=== PATIENT | female | born 1935 | race Two or more races ===

== ENCOUNTER 2017-10-27 19:34 | Inpatient (IN) | payer MEDICARE, OTHER ==
[~2017-10-27] VITALS: Ht 157.5 cm; Wt 68.0 kg
[~2017-10-27 19:34] MED LIST: AMAN100C16 PO; AMLO5TAB4 PO; ASPI81TA31 PO; CALC-555 PO; CHOL200026 PO; ERYTHROMYCIN RIGHTEYE; KETO45GE2; LEVO25TA9 PO; LOSA100T3 PO; MENT3.5O TP; METF500T4 PO; MULT-1045 PO; NORT25CA PO; OMEG-49 PO; POTA8TAB3 PO; QUET25TA PO; RIVA3CAP3 PO; SIMV20TA6 PO; VITAMIN B 12; WARF4TAB41 PO; WARF5TAB77 PO; [UNRECOGNIZED DRUG - OTHER] TOP
[2017-10-27] MEDS ORDERED: IV NORMAL SALINE 1000 ML BAG IV ONE (21:15)
--- NOTE | 2017-10-27 21:24 | NUR ---
AT PT BEDSIDE FOR MSE
--- NOTE | 2017-10-27 21:32 | NUR ---
LAB AT PT BEDSIDE
[2017-10-27 21:54] LABS: BASOPHILS # (AUTO) 0.1 K/uL (0.0-8.0); BASOPHILS % (AUTO) 0.6 % (0.0-2.0); EOSINOPHILS # (AUTO) 1.2 K/uL (0.0-0.7); EOSINOPHILS % (AUTO) 10.9 % (0.0-7.0); HEMATOCRIT 25.1 % (31.2-41.9); HEMOGLOBIN 7.8 g/dL (10.9-14.3); LYMPHOCYTES # (AUTO) 2.2 K/uL (20.0-40.0); LYMPHOCYTES % (AUTO) 19.2 % (20.5-51.5); MEAN CORPUSCULAR HEMOGLOBIN 23.5 uug (24.7-32.8); MEAN CORPUSCULAR HGB CONC 31 g/dL (32.3-35.6); MEAN CORPUSCULAR VOLUME 75.4 fL (75.5-95.3); MONOCYTES % (AUTO) 8.4 % (0.0-11.0); NEUTROPHILS % (AUTO) 60.9 % (38.5-71.5); PLATELET COUNT (AUTO) 589 K/uL (179-408); RED BLOOD CELL COUNT(AUTO) 3.33 MIL/uL (3.63-4.92); WHITE BLOOD COUNT (AUTO) 11.5 K/uL (3.8-11.8)
--- NOTE | 2017-10-27 22:00 | NUR ---
DAUGHTER AT PT BEDSIDE. EXPRESSES SHE TOOK PT TO PCP TODAY, AND HEMOGLOBIN WAS LOW. WAS TOLD TO COME TO ED.
[2017-10-27 22:02] LABS: ALANINE AMINOTRANSFERASE 24 U/L (14-59); ALKALINE PHOSPHATASE 157 U/L (50-136); ASPARTATE AMINOTRANSFERASE 19 U/L (15-37); BILIRUBIN,DIRECT 0.1 mg/dL (0.0-0.2); BILIRUBIN,TOTAL 0.4 mg/dL (0.2-1.0); CARBON DIOXIDE 28 mmol/L (21-32); CHLORIDE 104 mmol/L (98-107); CREATININE 0.6 mg/dL (0.6-1.3); GLUCOSE 125 mg/dL (74-106); LIPASE 122 U/L (73-393); POTASSIUM 3.8 mmol/L (3.5-5.1); TOTAL PROTEIN, SERUM 7.2 g/dL (6.4-8.2); UREA NITROGEN, BLOOD 24 mg/dL (7-18)
[2017-10-27] MEDS ORDERED: LABETALOL HCL 100 MG/20 ML VIAL IV ONE (22:45)
[2017-10-27] MEDS ORDERED: LABETALOL HCL 100 MG/20 ML VIAL ONE (23:00)
--- NOTE | 2017-10-27 23:05 | NUR ---
Pt to CT via [place]
[2017-10-27] MEDS ORDERED: QUETIAPINE FUMARATE 25 MG TABLET PO SCH (23:15)
[2017-10-27] MEDS ORDERED: ONDANSETRON 4 MG/2 ML VIAL IV PRN (23:15)
[2017-10-27] MEDS ORDERED: DEXTROSE 50% 50 ML DISP.SYRIN IV PRN (23:15)
[2017-10-27 23:19] LABS: *BILIRUBIN,URIN NEGATIVE (NEGATIVE); *BLOOD, URINE Trace-lysed (NEGATIVE); *CLARITY,URINE HAZY (CLEAR); *COLOR,URINE YELLOW (YELLOW); *KETONES,URINE NEGATIVE (NEGATIVE); *PROTEIN,URINE 1+ (NEGATIVE); *UROBILINOGEN,URINE 0.2 E.U./dl (NORMAL); LEUKOCYTE ESTERASE ,URINE 2+ (NEGATIVE); NITRITE, URINE POSITIVE (NEGATIVE); UGLUCOSE NEGATIVE (NEGATIVE)
[2017-10-27 23:23] LABS: BACTERIA,URINE MODERATE /HPF (NONE SEEN); RBC,URINE 0-3 /HPF (0-3); SQUAMOUS EPITHELIAL CELL,UR FEW /HPF (NONE SEEN)
[2017-10-28] VITALS (9 sets, daily range): BP systolic 116–161; BP diastolic 41–71
--- NOTE | 2017-10-28 00:23 | NUR ---
Pt's O2 sat decreased to 88 -89 % on RA. No improvement with repositioning and replacing saturation monitor. Pt placed on 2 L NC to maintain O2 stats > 95%
--- NOTE | 2017-10-28 01:02 | NUR ---
LAB AT PT BEDSIDE
[2017-10-28] MEDS: IV NS 1000 ML 1,000 ML IV PRN ×2 (02:32→09:41)
--- NOTE | 2017-10-28 02:50 | NUR ---
PT RESTING IN A POSITION OF COMFORT. NO ACUTE DISTRESS NOTED AT THIS TIME.
[2017-10-28 02:52] LABS: IRON, SERUM 11 ug/dL (50-175)
--- NOTE | 2017-10-28 03:52 | NUR ---
PT RESTING IN A POSITION OF COMFORT. NO ACUTE DISTRESS NOTED AT THIS TIME.
--- NOTE | 2017-10-28 05:00 | NUR ---
Pt resting in position of comfort for self, no obvious signs of distress at this time. Admission pending.
[2017-10-28] MEDS ORDERED: CEFEPIME HCL 2 G in IV DEXTROSE 5% 100 ML IV ONE (06:00)
--- NOTE | 2017-10-28 07:00 | NUR ---
recieved pt at bed, resting, no sign of distress. daughter at bedside, daughter very involved in care.pt daughter said that the pt has heel wounds that is under care of a surgeon. pt daughter has all the meds and supplies to change the wound and requesting that only her changes the wound dressing. floor rn notified.
[2017-10-28] MEDS ORDERED: CEFEPIME HCL 1 G VIAL ONE (07:14)
--- NOTE | 2017-10-28 07:14 | NUR ---
Report given to JANEL Lester. I relinquish care of pt at this time.
[2017-10-28] MEDS: BLOOD SUGAR DIAGNOSTIC 1 EACH STRIP VI SCH ×4 (07:50→21:00)
[2017-10-28 08:02] LABS: BASOPHILS # (AUTO) 0.1 K/uL (0.0-8.0); EOSINOPHILS # (AUTO) 0.6 K/uL (0.0-0.7); LYMPHOCYTES # (AUTO) 1.8 K/uL (20.0-40.0); MONOCYTES # (AUTO) 0.9 K/uL (2.0-10.0)
[2017-10-28] MEDS ORDERED: INSULIN REGULAR, HUMAN 300 UNIT/3 ML VIAL ONE (08:02)
[2017-10-28 08:07] LABS: BASOPHILS % (AUTO) 0.5 % (0.0-2.0); HEMATOCRIT 22.4 % (31.2-41.9); MEAN CORPUSCULAR HEMOGLOBIN 23.3 uug (24.7-32.8); MEAN CORPUSCULAR HGB CONC 31 g/dL (32.3-35.6); MEAN CORPUSCULAR VOLUME 75.2 fL (75.5-95.3); MONOCYTES % (AUTO) 8.7 % (0.0-11.0); NEUTROPHILS # (AUTO) 6.6 K/uL (1.8-8.9); NEUTROPHILS % (AUTO) 66.8 % (38.5-71.5); PLATELET COUNT (AUTO) 520 K/uL (179-408); RED BLOOD CELL COUNT(AUTO) 2.97 MIL/uL (3.63-4.92); WHITE BLOOD COUNT (AUTO) 9.8 K/uL (3.8-11.8)
[2017-10-28 08:15] LABS: CARBON DIOXIDE 25 mmol/L (21-32); CHLORIDE 107 mmol/L (98-107); CHOLESTEROL 93 mg/dL (<200); CREATININE 0.5 mg/dL (0.6-1.3); GLUCOSE 153 mg/dL (74-106); HDL CHOLESTEROL 40 mg/dL (40-60); MAGNESIUM 1.9 mg/dL (1.8-2.4); PHOSPHOROUS 2.5 mg/dL (2.5-4.9); POTASSIUM 3.4 mmol/L (3.5-5.1); TRIGLYCERIDES 100 MG/DL (30-150); UREA NITROGEN, BLOOD 14 mg/dL (7-18)
--- NOTE | 2017-10-28 08:29 | NUR ---
pt transfered to floor in stable condition
[2017-10-28 08:46] LABS: BASOPHILS % (MANUAL) 1 % (0-2); EOSINOPHILS % (MANUAL) 7 % (0-8); LYMPHOCYTES % (MANUAL) 18 % (20-40); MONOCYTES % (MANUAL) 9 % (2-10); NEUTROPHILS % (MANUAL) 65 % (42-75)
[2017-10-28] MEDS ORDERED: METFORMIN HCL 500 MG TABLET PO SCH (09:00)
[2017-10-28] MEDS: PANTOPRAZOLE SODIUM 40 MG VIAL IV SCH ×2 (09:00→14:00)
[2017-10-28] MEDS ORDERED: RIVASTIGMINE TARTRATE 3 MG CAPSULE PO SCH (09:00)
--- NOTE | 2017-10-28 09:00 | NUR ---
NEW PATIENT FROM ER TO ROOM 229B AWAKE CONFUSED FORGETFUL VS TAKEN STABLE ON ASPIRATION AND FALL PRECAUTION BED ALARM ON AND CALL LIGHT IN REACH FAMILY DAUGHTER AT BEDSIDE
--- NOTE | 2017-10-28 09:30 | NUR ---
PATIENT HAVING LOW SAT O2 WAS 81 WHEN SHE WAS HERE SUCTION MOUTH PRN MOD AMT THICK WHITE SPUTUM OUT AND CHANGE O2 TO MASK AT 5L /MIN O2 SAT WAS 95% AND RT WAS INFORM OF SITUATION TO DO TREATMENT PRN IF NEED
[2017-10-28] MEDS: CALCIUM CARB/VITAMIN D 500MG-200UNITS TABLET PO SCH (09:41)
[2017-10-28] MEDS: ACETAMINOPHEN 650 MG SUPP.RECT RC PRN ×3 (09:41→21:17)
[2017-10-28] MEDS: SIMVASTATIN 20 MG TABLET PO SCH (09:41)
[2017-10-28] MEDS: RIVASTIGMINE TARTRATE 3 MG CAPSULE PO SCH ×2 (09:41→17:08)
[2017-10-28] MEDS: LEVOTHYROXINE SODIUM 25 MCG TABLET PO SCH (09:42)
--- NOTE | 2017-10-28 10:00 | NUR ---
HAVING LOOSE BM X1 STOOL OB SENT TO LAB AND REPOSITION DR GUTIÉRREZ HERE SEE PATIENT AND PT CONDITION INFORM NEW ORDER IN CHART
[2017-10-28] MEDS ORDERED: VANCOMYCIN IV 1 G in PREMIXED 0 EACH IV ONE (11:00)
[2017-10-28] MEDS ORDERED: QUETIAPINE FUMARATE 25 MG TABLET PO PRN (11:15)
[2017-10-28] MEDS: PIPERACILLIN SODIUM/TAZOBACTAM 4.5 G in IV DEXTROSE 5% 50 ML IV SCH ×3 (11:20→22:56)
--- NOTE | 2017-10-28 13:00 | NUR ---
START GT FEEDING WITH DM RESOURCE AT 30ML /HR WILL INCREASE WHEN TAKING WELL
[2017-10-28] MEDS ORDERED: POTASSIUM CHLORIDE 20 MEQ TAB.PRT.SR PO ONE (14:30)
--- NOTE | 2017-10-28 15:05 | NUR ---
CLINICAL PHARMACY NOTE: VANCOMYCIN PHARMACY TO DOSE Subjective: T ostart vanco in this 82 y/o female for indication of "suspected infection" Objective: weight 68 kg height 149 cm bun 14 Scr 0.5 wbc 9.8 temp 98.6 Assessment/Plan Will start vanco 1gm q17hr for estimated trough of 14.78, first dose today at 1100. Will order trough before 4th dose (not ordered yet). Will dose per level if scr were to appear unstable. Will continue
--- NOTE | 2017-10-28 15:30 | NUR ---
START BLOOD TRANSFUSION HORTENCIA PROCEDURE WELL VS STABLE RESTING CLOSED OBSERVATION
[2017-10-28] MEDS ORDERED: POTASSIUM CHLORIDE 20 MEQ POWDER PACKET PO ONE (15:45)
[2017-10-28] MEDS ORDERED: NOVASOURCE RENAL 1000 ML LIQUID GT SCH (16:15)
[2017-10-28] MEDS: METFORMIN HCL 500 MG TABLET PO SCH (17:08)
[2017-10-28] MEDS: INSULIN REGULAR, HUMAN 300 UNIT/3 ML VIAL SQ PRN (17:10)
--- NOTE | 2017-10-28 18:00 | NUR ---
BLOOD TRANSFUSION COMPLETE NO REACTION VS TAKEN STABLE RESTING WELL HORTENCIA GT FEEDING WELL NO N/V REPOSITION Q2 HR AND MOUTH CARE GIVEN
--- NOTE | 2017-10-28 18:15 | NUR ---
HEMODYNAMIC STATUS STABLE SAFETY MEASURE PROVIDED BED ALARM PIPELINER FINCH IN REACH FAMILY DAUGHTER AT BEDSIDE REFUSED TO CHANGE DSG OR TAKEN PICTURE STATE WILL DO IT HERSELF
--- NOTE | 2017-10-28 20:49 | NUR ---
Report received on pt. Initial assessment completed. Pt is unresponsive to voice, contracted to BUE and BLE, notable course rhonchi to BLL, no cough, face mask in place, HOB up 35 degrees. Tube feeding to g tube infusing at 40 ml/hr, I checked residual = 60ml/hr, returned residual to pt with HOB elevated, flushed tube and held tube feeding at present. Pts' daughter is at bedside insisting on "help with holding her leg while I change dressing, I'm not waiting any longer". Daughter changed dressings to both LE, pt turned to side with HOB elevated. I visualized a 3.5" by approximately 2.5" decubitus on the base of pts right foot, an approximately 3.5 by 3" decubitus on right ankle, large decubitus on top of left foot and on side of left foot. Sites are red, vascular, no necrosis seen at site, feet placed in heel protector boots after dressings changed. Daughter refuses to allow pictures to be taken of decubitus.
[2017-10-28] MEDS: NORTRIPTYLINE HCL 25 MG CAPSULE PO SCH (21:16)
[2017-10-28] MEDS: AMANTADINE HCL 100 MG CAPSULE PO SCH (21:16)
[2017-10-29 00:44] VITALS: BP 101/63
--- NOTE | 2017-10-29 01:39 | NUR ---
Per daughters request (& per bed control/chargemaster analyst) moved pt to private room 227. Tolerated well. No acute changes in ongoing patient assessment.
[2017-10-29 04:00] VITALS: BP 116/61
[2017-10-29] MEDS: VANCOMYCIN IV 1 G in PREMIXED 0 EACH IV SCH ×2 (04:38→22:32)
[2017-10-29] MEDS: PANTOPRAZOLE SODIUM 40 MG VIAL IV SCH (05:34)
[2017-10-29] MEDS: PIPERACILLIN SODIUM/TAZOBACTAM 4.5 G in IV DEXTROSE 5% 50 ML IV SCH ×2 (05:35→14:19)
[2017-10-29] MEDS: LEVOTHYROXINE SODIUM 25 MCG TABLET PO SCH (05:35)
[2017-10-29] MEDS: IV NS 1000 ML 1,000 ML IV PRN ×2 (05:51→22:34)
[2017-10-29] MEDS: BLOOD SUGAR DIAGNOSTIC 1 EACH STRIP VI SCH ×4 (06:10→22:28)
[2017-10-29 06:53] LABS: BASOPHILS # (AUTO) 0.1 K/uL (0.0-8.0); BASOPHILS % (AUTO) 0.9 % (0.0-2.0); EOSINOPHILS # (AUTO) 1.5 K/uL (0.0-0.7); EOSINOPHILS % (AUTO) 14.7 % (0.0-7.0); LYMPHOCYTES # (AUTO) 1.4 K/uL (20.0-40.0); LYMPHOCYTES % (AUTO) 13.3 % (20.5-51.5); MEAN CORPUSCULAR HEMOGLOBIN 24.1 uug (24.7-32.8); MEAN CORPUSCULAR HGB CONC 31 g/dL (32.3-35.6); MONOCYTES # (AUTO) 0.7 K/uL (2.0-10.0); MONOCYTES % (AUTO) 6.9 % (0.0-11.0); NEUTROPHILS # (AUTO) 6.7 K/uL (1.8-8.9); NEUTROPHILS % (AUTO) 64.2 % (38.5-71.5); PLATELET COUNT (AUTO) 476 K/uL (179-408); RED BLOOD CELL COUNT(AUTO) 3.38 MIL/uL (3.63-4.92); WHITE BLOOD COUNT (AUTO) 10.5 K/uL (3.8-11.8)
[2017-10-29 06:58] LABS: HEMOGLOBIN 8.1 g/dL (10.9-14.3)
[2017-10-29 07:05] LABS: CARBON DIOXIDE 25 mmol/L (21-32); CHLORIDE 111 mmol/L (98-107); CREATININE 0.6 mg/dL (0.6-1.3); GLUCOSE 152 mg/dL (74-106); MAGNESIUM 1.9 mg/dL (1.8-2.4); PHOSPHOROUS 2.6 mg/dL (2.5-4.9); POTASSIUM 3.5 mmol/L (3.5-5.1); UREA NITROGEN, BLOOD 12 mg/dL (7-18)
[2017-10-29] MEDS: INSULIN REGULAR, HUMAN 300 UNIT/3 ML VIAL SQ PRN ×2 (07:49→17:02)
--- NOTE | 2017-10-29 08:10 | NUR ---
on bed ,sleeping comfortably. no acute distress noted.
[2017-10-29 09:06] LABS: *OCCULT BLOOD STOOL NEGATIVE (NEGATIVE)
[2017-10-29] MEDS: CALCIUM CARB/VITAMIN D 500MG-200UNITS TABLET PO SCH (09:13)
[2017-10-29] MEDS: RIVASTIGMINE TARTRATE 3 MG CAPSULE PO SCH ×2 (09:13→17:22)
[2017-10-29] MEDS: SIMVASTATIN 20 MG TABLET PO SCH (09:13)
[2017-10-29] MEDS: METFORMIN HCL 500 MG TABLET PO SCH ×2 (09:13→17:22)
[2017-10-29 11:40] VITALS: BP 136/62
--- NOTE | 2017-10-29 12:29 | NUR ---
DAUGHTER CALLED, AWARE OF PATIENT STATUS, APPRECIATIVE OF CARE. WILL VISIT TODAY.
--- NOTE | 2017-10-29 13:34 | NUR ---
CLINICAL PHARMACY NOTE: VANCOMYCIN PHARMACY TO DOSE Subjective: To continue vanco in this 82 y/o female for indication of "suspected infection"- waiting for ID notes Objective: weight 68 kg height 149 cm bun 12 Scr 0.6 wbc 10.5 temp 99.1 Assessment/Plan Will continue same dose of vanco 1gm ivpb q17hr for today. Third dose is due today at 2100. Will order trough before 4th dose (not ordered yet). Will dose per level if scr were to appear unstable. Will continue
[2017-10-29 15:36] VITALS: BP 119/52
--- NOTE | 2017-10-29 16:00 | NUR ---
daughter at bedside, in ,supportive of patient care. supplied provided as requested., will do dressing change tomorrow per patient.
--- NOTE | 2017-10-29 18:30 | NUR ---
resting well, no acute respiratory distress. tolerating tube feeding well
--- NOTE | 2017-10-29 19:30 | NUR ---
Pt sleeping in bed. Daughter at bedside. Pt IV intact and patent. PT daughter said that her mother has her own Wound Care doctor. The daughter will be the one doing the wound care or dressing change for her mother tomorrow. She just want us nurse and loan counselor to just change the diaper and incase the dressing gets soiled just change it and put the Calmoseptine ointment and the absorbent pad. Daughter also wants to remind us that her mother doesn't want to turn off the lights even if she is sleeping and wants music or turn on the television. Vital signs of pt WNL. will continue to monitor. Safety and comfort provided.
[2017-10-29 20:00] VITALS: BP 122/62
[2017-10-29] MEDS: NORTRIPTYLINE HCL 25 MG CAPSULE PO SCH (23:08)
[2017-10-29] MEDS: LACTOBACILLUS RHAMNOSUS GG 1 EACH CAPSULE GT SCH (23:08)
[2017-10-29] MEDS: AMANTADINE HCL 100 MG CAPSULE PO SCH (23:08)
[2017-10-30 00:18] VITALS: BP 140/60
[2017-10-30] MEDS: PIPERACILLIN SODIUM/TAZOBACTAM 4.5 G in IV DEXTROSE 5% 50 ML IV SCH ×4 (00:35→22:10)
[2017-10-30] MEDS: DIABETICSOURCE AC 1000ML LIQUID GT PRN (02:46)
[2017-10-30 04:00] VITALS: BP 154/74
[2017-10-30] MEDS: BLOOD SUGAR DIAGNOSTIC 1 EACH STRIP VI SCH ×4 (06:46→20:28)
[2017-10-30 06:49] LABS: BASOPHILS % (AUTO) 0.4 % (0.0-2.0); EOSINOPHILS # (AUTO) 0.8 K/uL (0.0-0.7); EOSINOPHILS % (AUTO) 7.1 % (0.0-7.0); HEMATOCRIT 25.4 % (31.2-41.9); HEMOGLOBIN 7.9 g/dL (10.9-14.3); LYMPHOCYTES # (AUTO) 1.8 K/uL (20.0-40.0); LYMPHOCYTES % (AUTO) 15.4 % (20.5-51.5); MEAN CORPUSCULAR HGB CONC 31 g/dL (32.3-35.6); MEAN CORPUSCULAR VOLUME 77.1 fL (75.5-95.3); MONOCYTES % (AUTO) 8.7 % (0.0-11.0); NEUTROPHILS # (AUTO) 7.9 K/uL (1.8-8.9); NEUTROPHILS % (AUTO) 68.4 % (38.5-71.5); PLATELET COUNT (AUTO) 486 K/uL (179-408); WHITE BLOOD COUNT (AUTO) 11.6 K/uL (3.8-11.8)
[2017-10-30] MEDS: PANTOPRAZOLE SODIUM 40 MG VIAL IV SCH (06:50)
[2017-10-30] MEDS: LEVOTHYROXINE SODIUM 25 MCG TABLET PO SCH (06:50)
[2017-10-30 06:57] LABS: CARBON DIOXIDE 27 mmol/L (21-32); CHLORIDE 112 mmol/L (98-107); CREATININE 0.6 mg/dL (0.6-1.3); GLUCOSE 151 mg/dL (74-106); POTASSIUM 3.3 mmol/L (3.5-5.1); UREA NITROGEN, BLOOD 12 mg/dL (7-18)
--- NOTE | 2017-10-30 07:00 | NUR ---
PT VITAL SIGNS WNL. PT SHOWS NO SIGNS OF DISTRESS. IV SITE INTACT AND PATENT. DAUGHTER CALLED LAST NIGHT AND AT [place] TO ASK THE CONDITION OF HER MOTHER. DAUGHTER SAID SHE WILL BE THE ONE WHO WILL DO THE DRESSING CHANGE LATER. BLOOD SUGAR 153. SAFETY AND COMFORT PROVIDED.
--- NOTE | 2017-10-30 07:30 | NUR ---
Awake, confused. on moderate high back rest. O2 per mask at 5L. IVF infusing. Diabetasource per GTube
[2017-10-30] MEDS ORDERED: POTASSIUM CHLORIDE 20 MEQ TAB.PRT.SR PO ONE (09:45)
[2017-10-30] MEDS: METFORMIN HCL 500 MG TABLET PO SCH ×2 (10:18→17:01)
[2017-10-30] MEDS: CALCIUM CARB/VITAMIN D 500MG-200UNITS TABLET PO SCH (10:18)
[2017-10-30] MEDS: RIVASTIGMINE TARTRATE 3 MG CAPSULE PO SCH ×2 (10:18→16:46)
[2017-10-30] MEDS: SIMVASTATIN 20 MG TABLET PO SCH (10:18)
[2017-10-30] MEDS: LACTOBACILLUS RHAMNOSUS GG 1 EACH CAPSULE GT SCH ×2 (10:18→22:10)
[2017-10-30] MEDS ORDERED: POTASSIUM CHLORIDE 20 MEQ POWDER PACKET PO ONE (10:30)
[2017-10-30 11:15] VITALS: BP 129/49
--- NOTE | 2017-10-30 12:00 | NUR ---
O2 titrated to 3L/NC with O2 sat of 98%
[2017-10-30] MEDS: INSULIN REGULAR, HUMAN 300 UNIT/3 ML VIAL SQ PRN ×2 (13:12→20:31)
--- NOTE | 2017-10-30 14:39 | NUR ---
CLINICAL PHARMACY NOTE: VANCOMYCIN PHARMACY TO DOSE Subjective: To continue vanco in this 82 y/o female for possible pna, UTI (per ID note) Objective: weight 68 kg height 149 cm bun 12 Scr 0.6 wbc 11.6 temp 99.9 Vanco trough level: 10.3 Assessment/Plan Since vanco trough level is sub-therapeutic, will change dose from vanco 1gm ivpb q17hr to vanco 1gm IVPB q15h for predicted vanco trough level of 15 mcg/ml at steady state. 1st dose is due today at 1500. Will order trough before 4th dose (not ordered yet). Will dose per level if scr were to appear unstable. Will continue
--- NOTE | 2017-10-30 15:00 | NUR ---
Daughter at bedside, expressed concern. She is doing the wound care herself for the patient per instruction outpatient doctor. Repositioned in bed comfortably
[2017-10-30 15:02] VITALS: BP 138/48
[2017-10-30] MEDS: VANCOMYCIN IV 1 G in PREMIXED 0 EACH IV SCH (16:33)
[2017-10-30] MEDS: IV 1/2NS 1000 ML 1,000 ML IV PRN (16:36)
--- NOTE | 2017-10-30 18:47 | NUR ---
Tolerated G tube feedings, no significant residual. IVF infusing. Repositioned comfortably
--- NOTE | 2017-10-30 19:30 | NUR ---
Received patient laying in bed. HOB elevated. Patient is non verbal. No acute distress noted. IV Fluids running. Patient is on 02 2L NC. Tube feeding set at 40 tolerating well. Thompson care provided. Multiple wound dressing on upper and lower extremities. Per daughter, she does the wound dressing. Safety initiated. Call light within reach. Will continue to monitor.
[2017-10-30 20:00] VITALS: BP 124/53
[2017-10-30] MEDS: AMANTADINE HCL 100 MG CAPSULE PO SCH (20:25)
[2017-10-30] MEDS: NORTRIPTYLINE HCL 25 MG CAPSULE PO SCH (20:25)
[2017-10-30] MEDS: ACETAMINOPHEN 650 MG SUPP.RECT RC PRN (22:10)
[2017-10-31] VITALS (8 sets, daily range): BP systolic 102–145; BP diastolic 50–64
[2017-10-31] MEDS: VANCOMYCIN IV 1 G in PREMIXED 0 EACH IV SCH ×2 (05:16→23:56)
[2017-10-31] MEDS: IV 1/2NS 1000 ML 1,000 ML IV PRN (05:16)
--- NOTE | 2017-10-31 06:08 | NUR ---
Patient slept intermittently t/o shift. Observed patient early on the shift. Demonstrated facial grimacing and moaning. Patient appeared to be in pain. Patient is on 02 2L NC. Patient tolerated feeding set at 40 ml/hr. Meds given, observed relief. Safety and comfort measures maintained t/o shift. Turn and repositioned Q2H. Thompson care provided. Draining well. All meds given as ordered. Vital signs stable. All needs met.
[2017-10-31] MEDS: LEVOTHYROXINE SODIUM 25 MCG TABLET PO SCH (06:27)
[2017-10-31] MEDS: PIPERACILLIN SODIUM/TAZOBACTAM 4.5 G in IV DEXTROSE 5% 50 ML IV SCH ×3 (06:27→22:15)
[2017-10-31] MEDS: BLOOD SUGAR DIAGNOSTIC 1 EACH STRIP VI SCH ×4 (06:30→22:21)
[2017-10-31 09:03] LABS: BASOPHILS # (AUTO) 0.1 K/uL (0.0-8.0); BASOPHILS % (AUTO) 0.7 % (0.0-2.0); EOSINOPHILS # (AUTO) 1.1 K/uL (0.0-0.7); EOSINOPHILS % (AUTO) 9.4 % (0.0-7.0); HEMATOCRIT 23.5 % (31.2-41.9); LYMPHOCYTES # (AUTO) 1.5 K/uL (20.0-40.0); LYMPHOCYTES % (AUTO) 13.7 % (20.5-51.5); MEAN CORPUSCULAR HEMOGLOBIN 24.5 uug (24.7-32.8); MEAN CORPUSCULAR HGB CONC 31 g/dL (32.3-35.6); MEAN CORPUSCULAR VOLUME 78.1 fL (75.5-95.3); MONOCYTES # (AUTO) 0.7 K/uL (2.0-10.0); MONOCYTES % (AUTO) 6.6 % (0.0-11.0); NEUTROPHILS # (AUTO) 7.8 K/uL (1.8-8.9); NEUTROPHILS % (AUTO) 69.6 % (38.5-71.5); PLATELET COUNT (AUTO) 420 K/uL (179-408); RED BLOOD CELL COUNT(AUTO) 3.01 MIL/uL (3.63-4.92); WHITE BLOOD COUNT (AUTO) 11.3 K/uL (3.8-11.8)
[2017-10-31 09:24] LABS: CARBON DIOXIDE 27 mmol/L (21-32); CHLORIDE 110 mmol/L (98-107); CREATININE 0.7 mg/dL (0.6-1.3); GLUCOSE 143 mg/dL (74-106); MAGNESIUM 1.9 mg/dL (1.8-2.4); PHOSPHOROUS 2.2 mg/dL (2.5-4.9); POTASSIUM 3.4 mmol/L (3.5-5.1); UREA NITROGEN, BLOOD 16 mg/dL (7-18)
[2017-10-31 09:50] LABS: HEMOGLOBIN 7.4 g/dL (10.9-14.3)
[2017-10-31] MEDS: LACTOBACILLUS RHAMNOSUS GG 1 EACH CAPSULE GT SCH ×2 (10:17→22:16)
[2017-10-31] MEDS: SIMVASTATIN 20 MG TABLET PO SCH (10:17)
[2017-10-31] MEDS: CALCIUM CARB/VITAMIN D 500MG-200UNITS TABLET PO SCH (10:17)
[2017-10-31] MEDS: RIVASTIGMINE TARTRATE 3 MG CAPSULE PO SCH ×2 (10:17→18:05)
[2017-10-31] MEDS: METFORMIN HCL 500 MG TABLET PO SCH ×2 (10:19→18:00)
--- NOTE | 2017-10-31 13:19 | NUR ---
CLINICAL PHARMACY NOTE: VANCOMYCIN PHARMACY TO DOSE Subjective: To continue vanco in this 82 y/o female for possible pna, UTI (per ID note) Objective: weight 68 kg height 149 cm bun 16 Scr 0.7 wbc 11.3 temp 98.2 Assessment/Plan Will continue Vancomycin 1 gram ever 15 hrs (third dose tonight at 2100) and draw trough by 4th dose(ordered for tomorrow at 1130) for expected trough around 15. Will follow daily.
[2017-10-31] MEDS ORDERED: NEUTRA PHOS PACKET PO ONE (16:15)
[2017-10-31] MEDS ORDERED: EPOETIN ALFA 10,000 UNITS/ML VIAL SQ ONE (17:30)
--- NOTE | 2017-10-31 19:40 | NUR ---
PT RECEIVED IN BED, AWAKE. A/OX1. NON-VERBAL. V/S STABLE. IN NO ACUTE DISTRESS. NO S/S PAIN AT THIS TIME. ON 2LNC, TOLERATING WELL. AFEBRILE. BLOOD TRANSFUSION RUNNING AT 100/CC AN HOUR. WILL CONT TO MONITOR FOR ACUTE CHANGES. TUBE FEEDING RUNNING AT 30CC/HR AT THIS TIME, TOLERATING WELL. HOB ELEVATED. GAMBINO INTACT AND PATENT. ON FIRST STEP MATTRESS. UNABLE TO TAKE WOUND PICTURE AND DOCUMENTATION. DAUGHTER REFUSED, STATES SHE WILL CHANGE THE DRESSING TOMORROW AND DRESSINGS SHOULD NOT BE TOUCHED. SAFETY MEASURES IMPLEMENTED. BED IN LOCKED POSITION. CALL LIGHT WITHIN REACH.
--- NOTE | 2017-10-31 21:00 | NUR ---
PT HAS 30CC OF RESIDUAL FROM G-TUBE AT THIS TIME. DIABETISOURCE CONT AT 40CC/HR. WILL CONT TO MONITOR.
[2017-10-31] MEDS ORDERED: ACIDOPHILUS/BULGARICUS CHEW TAB GT SCH (22:00)
[2017-10-31] MEDS: NORTRIPTYLINE HCL 25 MG CAPSULE PO SCH (22:15)
[2017-10-31] MEDS: AMANTADINE HCL 100 MG CAPSULE PO SCH (22:16)
[2017-10-31] MEDS: INSULIN REGULAR, HUMAN 300 UNIT/3 ML VIAL SQ PRN (22:21)
[2017-11-01] MEDS: IV 1/2NS 1000 ML 1,000 ML IV PRN (04:19)
[2017-11-01] MEDS: MORPHINE SULFATE 4 MG/1 ML DISP.SYRIN IV PRN ×3 (04:53→17:34)
--- NOTE | 2017-11-01 05:00 | NUR ---
PT GTUBE RESIDUAL 10CC. PT TOLERATING TUBE FEEDING WELL AT 40CC/HR. WILL CONT TO MONITOR
[2017-11-01] MEDS: PIPERACILLIN SODIUM/TAZOBACTAM 4.5 G in IV DEXTROSE 5% 50 ML IV SCH ×3 (05:01→22:34)
[2017-11-01 05:02] VITALS: BP 156/78
--- NOTE | 2017-11-01 05:20 | NUR ---
ADMINISTERED MORPHINE ORDERED. PT BP ELEVATED AT 156/78 WITH PULSE 115. PT CRYING WITH FACIAL GRIMACING.
[2017-11-01] MEDS: LEVOTHYROXINE SODIUM 25 MCG TABLET PO SCH (06:50)
[2017-11-01] MEDS: BLOOD SUGAR DIAGNOSTIC 1 EACH STRIP VI SCH ×4 (07:00→21:24)
[2017-11-01 07:07] LABS: BASOPHILS # (AUTO) 0.1 K/uL (0.0-8.0); BASOPHILS % (AUTO) 0.7 % (0.0-2.0); EOSINOPHILS # (AUTO) 0.9 K/uL (0.0-0.7); EOSINOPHILS % (AUTO) 7.4 % (0.0-7.0); LYMPHOCYTES # (AUTO) 1.6 K/uL (20.0-40.0); MEAN CORPUSCULAR HGB CONC 32 g/dL (32.3-35.6); MONOCYTES # (AUTO) 0.9 K/uL (2.0-10.0); MONOCYTES % (AUTO) 7.2 % (0.0-11.0); NEUTROPHILS # (AUTO) 8.7 K/uL (1.8-8.9); NEUTROPHILS % (AUTO) 71.7 % (38.5-71.5); PLATELET COUNT (AUTO) 427 K/uL (179-408); RED BLOOD CELL COUNT(AUTO) 3.91 MIL/uL (3.63-4.92); WHITE BLOOD COUNT (AUTO) 12.1 K/uL (3.8-11.8)
--- NOTE | 2017-11-01 07:21 | NUR ---
END OF SHIFT NOTES. PT SLEPT INTERMITTENTLY THROUGHOUT SHIFT. IN STABLE CONDITION. ON 2LNC, TOLERATING WELL. IVF INFUSING. IV ABX INFUSED. TUBE FEEDING RUNNING AT 40CC/HR. NO RESIDUAL AT THIS TIME. ON FIRST STEP MATTRESS WITH HOB ELEVATED. PT BELONGING SOILED WITH STOOL. LEFT IN BAG AT BEDSIDE. ALL NEEDS ATTENDED. SAFETY MAINTAINED. CALL LIGHT WITHIN REACH.
[2017-11-01 07:29] LABS: HEMATOCRIT 30.5 % (31.2-41.9); HEMOGLOBIN 9.8 g/dL (10.9-14.3)
[2017-11-01 07:43] LABS: ALANINE AMINOTRANSFERASE 21 U/L (14-59); ALKALINE PHOSPHATASE 148 U/L (50-136); ASPARTATE AMINOTRANSFERASE 18 U/L (15-37); BILIRUBIN,TOTAL 0.9 mg/dL (0.2-1.0); CARBON DIOXIDE 29 mmol/L (21-32); CHLORIDE 105 mmol/L (98-107); CREATININE 0.6 mg/dL (0.6-1.3); GLUCOSE 153 mg/dL (74-106); MAGNESIUM 1.9 mg/dL (1.8-2.4); PHOSPHOROUS 2.4 mg/dL (2.5-4.9); POTASSIUM 3.1 mmol/L (3.5-5.1); TOTAL PROTEIN, SERUM 6.7 g/dL (6.4-8.2); UREA NITROGEN, BLOOD 13 mg/dL (7-18)
[2017-11-01] MEDS: LACTOBACILLUS RHAMNOSUS GG 1 EACH CAPSULE GT SCH ×2 (09:22→20:54)
[2017-11-01] MEDS: PANTOPRAZOLE ORAL SUSPENSION 40 MG SUSPDR.PKT GT SCH ×2 (09:22→09:29)
[2017-11-01] MEDS: METFORMIN HCL 500 MG TABLET PO SCH ×2 (09:22→17:34)
[2017-11-01] MEDS: RIVASTIGMINE TARTRATE 3 MG CAPSULE PO SCH ×2 (09:22→17:34)
[2017-11-01] MEDS: SIMVASTATIN 20 MG TABLET PO SCH (09:22)
[2017-11-01] MEDS: CALCIUM CARB/VITAMIN D 500MG-200UNITS TABLET PO SCH (09:22)
[2017-11-01] MEDS: INSULIN REGULAR, HUMAN 300 UNIT/3 ML VIAL SQ PRN ×3 (09:29→21:26)
[2017-11-01 11:08] VITALS: BP 160/74
[2017-11-01] MEDS ORDERED: METOCLOPRAMIDE HCL 10 MG/2 ML VIAL IV SCH (11:30)
[2017-11-01] MEDS: POTASSIUM PHOSPHATE MM 7.5 MMOL in IV DEXTROSE 5% 100 ML IV SCH ×2 (12:00→15:28)
--- NOTE | 2017-11-01 14:23 | NUR ---
CLINICAL PHARMACY NOTE: VANCOMYCIN PHARMACY TO DOSE Subjective: To continue vanco in this 82 y/o female for possible pna, UTI (per ID note) Objective: weight 68 kg height 149 cm bun 13 Scr 0.6 wbc 12.1 temp 99 Assessment/Plan Currently on Vancomycin 1 gram ever 15 hrs. Trough was ordered for 1130 prior to 12noon dose ; drawn @ 1330 and reported back the result @ 1430 (trough = 17.1) Will reschedule the dose for 1500 and continue for the same regimen . Will follow daily.
[2017-11-01] MEDS ORDERED: VANCOMYCIN IV 1 G in PREMIXED 0 EACH IV SCH (15:00)
[2017-11-01 15:06] LABS: *BILIRUBIN,URIN NEGATIVE (NEGATIVE); *BLOOD, URINE 1+ (NEGATIVE); *COLOR,URINE LIGHT YELLOW (YELLOW); *KETONES,URINE NEGATIVE (NEGATIVE); *PROTEIN,URINE 1+ (NEGATIVE); LEUKOCYTE ESTERASE ,URINE TRACE (NEGATIVE); NITRITE, URINE POSITIVE (NEGATIVE); PH,URINE 6.5 (5.0-8.0); UGLUCOSE NEGATIVE (NEGATIVE)
[2017-11-01 15:07] VITALS: BP 124/56
[2017-11-01 15:22] LABS: *CLARITY,URINE HAZY (CLEAR)
[2017-11-01 15:23] LABS: BACTERIA,URINE NONE SEEN /HPF (NONE SEEN); SQUAMOUS EPITHELIAL CELL,UR FEW /HPF (NONE SEEN); WBC,URINE 50-80 /HPF (0-3)
[2017-11-01 15:24] LABS: CALCIUM OXALATE CRYSTALS,UR FEW /HPF (NONE SEEN); MUCUS,URINE FEW /LPF (0-FEW); YEAST,URINE MODERATE /HPF (NONE SEEN)
[2017-11-01] MEDS: DIABETICSOURCE AC 1000ML LIQUID GT PRN (17:58)
--- NOTE | 2017-11-01 19:25 | NUR ---
PT RECEIVED IN BED, AWAKE. DAUGHTER AT BEDSIDE. A/OX1. WAKES TO NAME. NON-VERBAL. V/S STABLE. IN NO ACUTE DISTRESS. PT DAUGHTER STATES PT IS IN FURTHER PAIN. PAIN MED GIVEN 2HOURS AGO. PT MOANING, HAS FACIAL GRIMACE AND CRYING. MD NOTIFIED. DAUGHTER REQUEST ANOTHER DOSE OF PAIN MEDICATION. PT TEMP SLIGHTLY ELEVATED AT 99.5F. WILL ADMIN ANTIPYRETIC ORDERED. IV POTASSIUM RUNNING AT THIS TIME. IV INTACT AND PATENT. ON 2L NC TOLERATING WELL. G-TUBE FEEDING RUNNING AT 40CC/HR, HOB ELEVATED. GAMBINO INTACT AND PATENT. SEEN WITH KAROL COLOR URINE. ON FIRST STEP MATTRESS, WITH PILLOWS BETWEEN LEGS. DAUGHTER REFUSES PICTURE DOCUMENTATION OF WOUNDS AT THIS TIME. ALSO REQUEST THAT THE DRESSING AND WOUNDS BE LEFT ALONE. REFUSES WOUND NURSE CONSULT. SAFETY MEASURES IMPLEMENTED. CALL LIGHT WITHIN REACH.
[2017-11-01] MEDS ORDERED: MORPHINE SULFATE 2 MG/1 ML DISP.SYRIN IV ONE (20:15)
[2017-11-01 20:40] VITALS: BP 135/50
[2017-11-01] MEDS ORDERED: MORPHINE SULFATE 4 MG/1 ML DISP.SYRIN IV ONE (20:45)
[2017-11-01] MEDS: METOCLOPRAMIDE HCL 10 MG/2 ML VIAL IV SCH (20:52)
[2017-11-01] MEDS: ACETAMINOPHEN 650 MG SUPP.RECT RC PRN (20:54)
[2017-11-01] MEDS: AMANTADINE HCL 100 MG CAPSULE PO SCH (20:54)
[2017-11-01] MEDS: NORTRIPTYLINE HCL 25 MG CAPSULE PO SCH (20:54)
[2017-11-01] MEDS ORDERED: FLUCONAZOLE 200 MG/NS 100ML IV 100 MG in PREMIXED 1 EACH IV SCH (21:00)
--- NOTE | 2017-11-01 21:00 | NUR ---
PT HAS 10CC OF GASTRIC RESIDUAL AT THIS TIME. PT TOLERATING FEEDING WELL. CONT ON 40CC/HR DIABETISOURCE FEED. HOB ELEVATED. WILL CONT TO MONITOR.
--- NOTE | 2017-11-02 | NUR ---
OLD GAMBINO CATHETER REMOVED. 200CC IN OLD GAMBINO CATH BAG. NEW GAMBINO CATH PLACED. INTACT AND PATENT. WILL CONT TO MONITOR.
[2017-11-02 04:00] VITALS: BP 144/67
[2017-11-02] MEDS: MORPHINE SULFATE 4 MG/1 ML DISP.SYRIN IV PRN ×2 (04:20→17:16)
[2017-11-02] MEDS: METOCLOPRAMIDE HCL 10 MG/2 ML VIAL IV SCH ×2 (04:20→11:31)
--- NOTE | 2017-11-02 06:27 | NUR ---
END OF SHIFT NOTES. PT SLEPT WELL THROUGHOUT SHIFT. IN STABLE CONDITION. IV ABX INFUSED. IVF INFUSING. PAIN MANAGED. HOB ELEVATED. GAMBINO INTACT AND PATENT. ON 2L NC TOLERATING WELL. AFEBRILE. ALL NEEDS ATTENDED. SAFETY MAINTAINED. CALL LIGHT WITHIN REACH.
[2017-11-02] MEDS: LEVOTHYROXINE SODIUM 25 MCG TABLET PO SCH (06:34)
[2017-11-02] MEDS: PIPERACILLIN SODIUM/TAZOBACTAM 4.5 G in IV DEXTROSE 5% 50 ML IV SCH (06:34)
[2017-11-02] MEDS: BLOOD SUGAR DIAGNOSTIC 1 EACH STRIP VI SCH ×3 (06:55→17:28)
[2017-11-02] MEDS: IV 1/2NS 1000 ML 1,000 ML IV PRN ×2 (06:56→09:38)
[2017-11-02 08:39] LABS: BASOPHILS # (AUTO) 0.1 K/uL (0.0-8.0); BASOPHILS % (AUTO) 0.7 % (0.0-2.0); HEMATOCRIT 30.7 % (31.2-41.9); HEMOGLOBIN 9.8 g/dL (10.9-14.3); LYMPHOCYTES # (AUTO) 2.1 K/uL (20.0-40.0); LYMPHOCYTES % (AUTO) 17.9 % (20.5-51.5); MEAN CORPUSCULAR HEMOGLOBIN 25.1 uug (24.7-32.8); MEAN CORPUSCULAR HGB CONC 32 g/dL (32.3-35.6); MEAN CORPUSCULAR VOLUME 78.9 fL (75.5-95.3); MONOCYTES # (AUTO) 0.9 K/uL (2.0-10.0); MONOCYTES % (AUTO) 8.1 % (0.0-11.0); NEUTROPHILS # (AUTO) 7.5 K/uL (1.8-8.9); NEUTROPHILS % (AUTO) 64.3 % (38.5-71.5); PLATELET COUNT (AUTO) 396 K/uL (179-408); RED BLOOD CELL COUNT(AUTO) 3.89 MIL/uL (3.63-4.92); WHITE BLOOD COUNT (AUTO) 11.6 K/uL (3.8-11.8)
[2017-11-02 08:45] LABS: ALANINE AMINOTRANSFERASE 23 U/L (14-59); ALKALINE PHOSPHATASE 128 U/L (50-136); ASPARTATE AMINOTRANSFERASE 17 U/L (15-37); BILIRUBIN,TOTAL 0.4 mg/dL (0.2-1.0); CARBON DIOXIDE 30 mmol/L (21-32); CHLORIDE 107 mmol/L (98-107); CREATININE 0.7 mg/dL (0.6-1.3); GLUCOSE 112 mg/dL (74-106); MAGNESIUM 1.7 mg/dL (1.8-2.4); PHOSPHOROUS 2.8 mg/dL (2.5-4.9); POTASSIUM 3.9 mmol/L (3.5-5.1); TOTAL PROTEIN, SERUM 6.2 g/dL (6.4-8.2); UREA NITROGEN, BLOOD 14 mg/dL (7-18)
[2017-11-02] MEDS: CALCIUM CARB/VITAMIN D 500MG-200UNITS TABLET PO SCH (09:13)
[2017-11-02] MEDS: METFORMIN HCL 500 MG TABLET PO SCH ×2 (09:13→17:11)
[2017-11-02] MEDS: RIVASTIGMINE TARTRATE 3 MG CAPSULE PO SCH ×2 (09:13→17:11)
[2017-11-02] MEDS: LACTOBACILLUS RHAMNOSUS GG 1 EACH CAPSULE GT SCH (09:13)
[2017-11-02] MEDS: PANTOPRAZOLE ORAL SUSPENSION 40 MG SUSPDR.PKT GT SCH (09:13)
[2017-11-02] MEDS: INSULIN REGULAR, HUMAN 300 UNIT/3 ML VIAL SQ PRN (09:16)
[2017-11-02 11:05] VITALS: BP 116/59
[2017-11-02] MEDS ORDERED: FUROSEMIDE 20 MG/2 ML VIAL IV ONE (12:30)
--- NOTE | 2017-11-02 13:22 | NUR ---
Spoke with Dr. Phipps regarding pt's IV access. stated to discontinue all IV. New orders received and carried out.
[2017-11-02] MEDS ORDERED: FUROSEMIDE 40 MG/5 ML LIQUID UDC GT ONE (13:30)
[2017-11-02] MEDS ORDERED: MAGNESIUM SULFATE/D5W 100 ML IV SCH (14:00)
[2017-11-02] MEDS ORDERED: MAGNESIUM OXIDE 400 MG TABLET PO ONE (14:30)
[2017-11-02 16:01] VITALS: BP 160/60
[2017-11-02] MEDS ORDERED: FLUC100T GT (17:54)
[2017-11-02] MEDS ORDERED: ACID1TAB4 GT (17:54)
[2017-11-02] MEDS ORDERED: CEPH-570 GT (17:54)
[2017-11-02] MEDS ORDERED: NITR100C11 GT (17:54)
--- NOTE | 2017-11-02 18:50 | NUR ---
Pt discharged to home with [facility] with ambulance. Discharge instructions provided and discussed with the daughter at the bedside. Meds reconciled by and reviewed with the daughter. Daughter verbalized understanding of discharge instructions and medications. Daughter refused photos and wound treatment to be provided for the pt. Daughter stated that she will provide the wound treatment. Pt discharged with g-tube and rae catheter. Pt stable and nad noted upon discharge. Addendum: 11/02/17 at 1932 by NAYLA ESCOBAR RN Full report given to ambulance and all belongings returned with the pt.
[2017-11-02] MEDS ORDERED: LEVOFLOXACIN 500 MG TABLET PO ONE (21:00)
[2017-11-02] MEDS ORDERED: FLUCONAZOLE 100 MG TABLET GT SCH (23:00)
[2017-11-02] MEDS ORDERED: LEVOFLOXACIN 500 MG TABLET PO SCH (23:00)
[2017-11-03] MEDS ORDERED: LEVOFLOXACIN 250 MG TABLET PO SCH (21:00)
== END 2017-11-02 19:00 | disposition home health service (06) | DRG 871 ==
LOC: ER 19:42 → TELE 23:07 → MED 10-30 22:20
PROC: 30233N1 Transfusion of Nonautologous Red Blood Cells into Peripheral Vein, Percutaneous Approach (ICD-10-PCS; principal; 2017-10-28)
DX: A41.9 Sepsis, unspecified organism (principal); J69.0 Pneumonitis due to inhalation of food and vomit; N17.0 Acute kidney failure with tubular necrosis; E43 Unspecified severe protein-calorie malnutrition; G93.40 Encephalopathy, unspecified; J84.9 Interstitial pulmonary disease, unspecified; B49 Unspecified mycosis; R53.2 Functional quadriplegia; I69.351 Hemiplegia and hemiparesis following cerebral infarction affecting right dominant side; K56.7 Ileus, unspecified; N39.0 Urinary tract infection, site not specified; B02.30 Zoster ocular disease, unspecified; K92.1 Melena; R13.10 Dysphagia, unspecified; D50.9 Iron deficiency anemia, unspecified; B96.5 Pseudomonas (aeruginosa) (mallei) (pseudomallei) as the cause of diseases classified elsewhere; B95.2 Enterococcus as the cause of diseases classified elsewhere; F01.50 Vascular dementia, unspecified severity, without behavioral disturbance, psychotic disturbance, mood disturbance, and anxiety; Z79.01 Long term (current) use of anticoagulants; Z79.82 Long term (current) use of aspirin; Z79.84 Long term (current) use of oral hypoglycemic drugs; Z68.27 Body mass index [BMI] 27.0-27.9, adult; E11.40 Type 2 diabetes mellitus with diabetic neuropathy, unspecified; E11.621 Type 2 diabetes mellitus with foot ulcer; L97.529 Non-pressure chronic ulcer of other part of left foot with unspecified severity; L97.519 Non-pressure chronic ulcer of other part of right foot with unspecified severity; E03.9 Hypothyroidism, unspecified; Z93.1 Gastrostomy status; E78.5 Hyperlipidemia, unspecified; Z90.710 Acquired absence of both cervix and uterus; Z87.440 Personal history of urinary (tract) infections; M81.0 Age-related osteoporosis without current pathological fracture; E87.6 Hypokalemia; E83.39 Other disorders of phosphorus metabolism; D47.3 Essential (hemorrhagic) thrombocythemia; I11.9 Hypertensive heart disease without heart failure; I70.0 Atherosclerosis of aorta; Z79.899 Other long term (current) drug therapy; Z74.01 Bed confinement status; H54.61 Unqualified visual loss, right eye, normal vision left eye
CPT/HCPCS: 36415; 70030-TC; 71045; 74018; 82378; 83550; 83605; 83690; 83735; 84100; 84443; 85025; 85730; 86850; 86900; 86901; 86920; 87040; 87077; 87086; 87400; 93005; 93307; A4217; A4663; C9113; J0692; J0885; J1450; J1815; J2270; J2543; J2765; J3370; J3490; J7030; J7040; J7060; P9016-BL; P9021

== ENCOUNTER 2018-05-27 11:05 | Inpatient (IN) | payer MEDICARE, OTHER ==
[~2018-05-27] VITALS: Ht 147.3 cm; Wt 58.5 kg
[~2018-05-27 11:05] MED LIST changes: +ACID1TAB4 GT; +AMLO5TAB4 GT; -AMLO5TAB4 PO; +CEPH-570 GT; +FLUC100T GT; +LEVO25TA9 GT; -LEVO25TA9 PO; +LOSA100T3 GT; -LOSA100T3 PO; -METF500T4 PO; +METF500T6 GT; +NITR100C11 GT
[2018-05-27] MEDS ORDERED: RIVA10TA GT (11:40)
[2018-05-27] MEDS ORDERED: SIMV20TA6 GT (11:40)
[2018-05-27] MEDS ORDERED: FERR325T28 GT (11:40)
[2018-05-27] MEDS ORDERED: METO-357 GT (11:40)
[2018-05-27] MEDS ORDERED: ERTA1VIA2 IV (11:40)
[2018-05-27] MEDS ORDERED: DIATR MEGLU/DIATRIZOATE SODIUM 120 ML BOTTLE GT ONE (12:00)
[2018-05-27] MEDS ORDERED: DIATR MEGLU/DIATRIZOATE SODIUM 30 ML SOLUTION ONE (12:06)
[2018-05-27 13:41] LABS: BASOPHILS # (AUTO) 0.1 K/uL (0.0-8.0); BASOPHILS % (AUTO) 0.5 % (0.0-2.0); EOSINOPHILS # (AUTO) 0.2 K/uL (0.0-0.7); HEMATOCRIT 26.3 % (31.2-41.9); HEMOGLOBIN 8.1 g/dL (10.9-14.3); LYMPHOCYTES # (AUTO) 2.4 K/uL (20.0-40.0); LYMPHOCYTES % (AUTO) 14.7 % (20.5-51.5); MEAN CORPUSCULAR HEMOGLOBIN 24.7 uug (24.7-32.8); MEAN CORPUSCULAR HGB CONC 31 g/dL (32.3-35.6); MEAN CORPUSCULAR VOLUME 80.6 fL (75.5-95.3); MONOCYTES # (AUTO) 1.6 K/uL (2.0-10.0); MONOCYTES % (AUTO) 9.4 % (0.0-11.0); NEUTROPHILS # (AUTO) 12.3 K/uL (1.8-8.9); NEUTROPHILS % (AUTO) 74.4 % (38.5-71.5); PLATELET COUNT (AUTO) 491 K/uL (179-408); RED BLOOD CELL COUNT(AUTO) 3.26 MIL/uL (3.63-4.92); WHITE BLOOD COUNT (AUTO) 16.6 K/uL (3.8-11.8)
[2018-05-27 13:52] LABS: CARBON DIOXIDE 25 mmol/L (21-32); CHLORIDE 106 mmol/L (98-107); CREATININE 0.5 mg/dL (0.6-1.3); GLUCOSE 124 mg/dL (74-106); POTASSIUM 3.5 mmol/L (3.5-5.1); UREA NITROGEN, BLOOD 12 mg/dL (7-18)
[2018-05-27 14:07] LABS: ALANINE AMINOTRANSFERASE 21 U/L (14-59); ALKALINE PHOSPHATASE 146 U/L (50-136); ASPARTATE AMINOTRANSFERASE 21 U/L (15-37); BILIRUBIN,DIRECT 0.1 mg/dL (0.0-0.2); BILIRUBIN,TOTAL 0.2 mg/dL (0.2-1.0); TOTAL PROTEIN, SERUM 4.9 g/dL (6.4-8.2)
[2018-05-27] MEDS ORDERED: IV NS 1000 ML 1,000 ML IV ONE ×2 (15:15→16:45)
[2018-05-27] MEDS ORDERED: HYDROCODONE/APAP 5-325MG TABLET PO PRN (16:45)
[2018-05-27] MEDS ORDERED: ONDANSETRON 4 MG/2 ML VIAL IV PRN (16:45)
[2018-05-27] MEDS: FERROUS SULFATE 325 MG TABEC PO SCH (17:00)
[2018-05-27 17:10] LABS: *BILIRUBIN,URIN NEGATIVE (NEGATIVE); *BLOOD, URINE 3+ (NEGATIVE); *COLOR,URINE YELLOW (YELLOW); *KETONES,URINE NEGATIVE (NEGATIVE); *PROTEIN,URINE 2+ (NEGATIVE); *UROBILINOGEN,URINE 0.2 E.U./dl (NORMAL); LEUKOCYTE ESTERASE ,URINE NEGATIVE (NEGATIVE); NITRITE, URINE NEGATIVE (NEGATIVE); PH,URINE 5.5 (5.0-8.0); UGLUCOSE NEGATIVE (NEGATIVE)
[2018-05-27 17:12] LABS: *CLARITY,URINE SLIGHTLY CLOUDY (CLEAR)
[2018-05-27 17:16] LABS: SQUAMOUS EPITHELIAL CELL,UR FEW /HPF (NONE SEEN)
[2018-05-27 17:17] LABS: BACTERIA,URINE RARE /HPF (NONE SEEN); RBC,URINE 50-80 /HPF (0-3)
[2018-05-27 17:53] VITALS: BP 121/47
[2018-05-27] MEDS ORDERED: ENOXAPARIN SODIUM 60 MG/0.6 ML DISP.SYRIN SQ SCH (18:00)
[2018-05-27] MEDS: VANCOMYCIN IV 1 G in PREMIXED 0 EACH IV SCH (18:46)
[2018-05-27 19:00] VITALS: BP 112/45
[2018-05-27] MEDS ORDERED: MEROPENEM 1 G in IV NORMAL SALINE 100 ML IV SCH ×2 (21:00→22:00)
[2018-05-27] MEDS ORDERED: ENOXAPARIN SODIUM 40 MG/0.4 ML DISP.SYRIN SQ SCH (21:00)
[2018-05-28] VITALS: BP 107/41
[2018-05-28] MEDS ORDERED: INSULIN REGULAR, HUMAN 300 UNIT/3 ML VIAL SQ PRN
[2018-05-28] MEDS: ENOXAPARIN SODIUM 60 MG/0.6 ML DISP.SYRIN SQ SCH ×3 (00:15→22:09)
[2018-05-28] MEDS: SIMVASTATIN 20 MG TABLET GT SCH ×2 (00:15→17:13)
[2018-05-28] MEDS: BLOOD SUGAR DIAGNOSTIC 1 EACH STRIP VI SCH ×5 (00:22→22:14)
[2018-05-28 04:00] VITALS: BP 110/45
[2018-05-28] MEDS ORDERED: ALBUMIN HUMAN 25% 25 GM in PREMIXED 1 EACH IV SCH (06:00)
[2018-05-28 06:35] LABS: CARBON DIOXIDE 26 mmol/L (21-32); CHLORIDE 105 mmol/L (98-107); CREATININE 0.6 mg/dL (0.6-1.3); GLUCOSE 69 mg/dL (74-106); MAGNESIUM 1.8 mg/dL (1.8-2.4); PHOSPHOROUS 3.4 mg/dL (2.5-4.9); POTASSIUM 3.4 mmol/L (3.5-5.1); UREA NITROGEN, BLOOD 11 mg/dL (7-18)
[2018-05-28] MEDS: LEVOTHYROXINE SODIUM 25 MCG TABLET GT SCH (06:41)
[2018-05-28 07:17] LABS: BASOPHILS # (AUTO) 0.1 K/uL (0.0-8.0); BASOPHILS % (AUTO) 0.5 % (0.0-2.0); EOSINOPHILS # (AUTO) 0.4 K/uL (0.0-0.7); EOSINOPHILS % (AUTO) 2.7 % (0.0-7.0); HEMATOCRIT 24.6 % (31.2-41.9); HEMOGLOBIN 7.5 g/dL (10.9-14.3); LYMPHOCYTES # (AUTO) 3.1 K/uL (20.0-40.0); LYMPHOCYTES % (AUTO) 21.5 % (20.5-51.5); MEAN CORPUSCULAR HEMOGLOBIN 25.1 uug (24.7-32.8); MEAN CORPUSCULAR HGB CONC 31 g/dL (32.3-35.6); MEAN CORPUSCULAR VOLUME 82.2 fL (75.5-95.3); MONOCYTES # (AUTO) 1.6 K/uL (2.0-10.0); MONOCYTES % (AUTO) 10.9 % (0.0-11.0); NEUTROPHILS # (AUTO) 9.4 K/uL (1.8-8.9); NEUTROPHILS % (AUTO) 64.4 % (38.5-71.5); PLATELET COUNT (AUTO) 494 K/uL (179-408); RED BLOOD CELL COUNT(AUTO) 2.99 MIL/uL (3.63-4.92); WHITE BLOOD COUNT (AUTO) 14.7 K/uL (3.8-11.8)
[2018-05-28] MEDS: FERROUS SULFATE 325 MG TABEC PO SCH ×4 (09:00→17:00)
[2018-05-28] MEDS: AMLODIPINE 5 MG TABLET GT SCH (09:00)
[2018-05-28] MEDS: METOPROLOL SUCCINATE XL 50 MG TAB.SR.24H PO SCH (09:00)
[2018-05-28] MEDS: LOSARTAN POTASSIUM 50 MG TABLET GT SCH (09:00)
[2018-05-28] MEDS ORDERED: ALTEPLASE 2 MG VIAL XX ONE ×2 (11:00)
[2018-05-28] MEDS ORDERED: [UNRECOGNIZED DRUG - CODE] IJ (12:28)
[2018-05-28] MEDS: PANTOPRAZOLE SODIUM 40 MG VIAL IV SCH (13:12)
[2018-05-28] MEDS: FUROSEMIDE 20 MG/2 ML VIAL IV SCH (13:12)
[2018-05-28] MEDS: EPOETIN ALFA 20,000 UNIT/ML ML SQ SCH (13:12)
[2018-05-28] MEDS: MEROPENEM 1 G in IV NORMAL SALINE 100 ML IV SCH (13:17)
[2018-05-28] MEDS: POTASSIUM CHLORIDE 50 ML IV SCH ×2 (14:30→17:13)
[2018-05-28 15:31] VITALS: BP 110/52
[2018-05-28 20:00] VITALS: BP 113/71
[2018-05-28] MEDS: VANCOMYCIN IV 1 G in PREMIXED 0 EACH IV SCH (22:15)
[2018-05-28] MEDS ORDERED: DEXTROSE 50% 50 ML DISP.SYRIN IV PRN ×2 (23:15)
[2018-05-29] VITALS: BP 115/37
[2018-05-29] MEDS ORDERED: BLOOD SUGAR DIAGNOSTIC 1 EACH STRIP VI SCH
[2018-05-29] MEDS: BLOOD SUGAR DIAGNOSTIC 1 EACH STRIP VI SCH ×5 (00:11→23:16)
[2018-05-29] MEDS: MEROPENEM 1 G in IV NORMAL SALINE 100 ML IV SCH ×2 (02:06→13:35)
[2018-05-29 04:00] VITALS: BP 110/32
[2018-05-29] MEDS: LEVOTHYROXINE SODIUM 25 MCG TABLET GT SCH (06:05)
[2018-05-29 06:49] LABS: CARBON DIOXIDE 27 mmol/L (21-32); CHLORIDE 107 mmol/L (98-107); CHOLESTEROL 64 mg/dL (<200); CREATININE 0.7 mg/dL (0.6-1.3); GLUCOSE 76 mg/dL (74-106); HDL CHOLESTEROL 30 mg/dL (40-60); POTASSIUM 3.1 mmol/L (3.5-5.1); TRIGLYCERIDES 67 MG/DL (30-150); UREA NITROGEN, BLOOD 11 mg/dL (7-18)
[2018-05-29] MEDS: PANTOPRAZOLE SODIUM 40 MG VIAL IV SCH (08:20)
[2018-05-29] MEDS: FUROSEMIDE 20 MG/2 ML VIAL IV SCH (08:20)
[2018-05-29] MEDS: ENOXAPARIN SODIUM 60 MG/0.6 ML DISP.SYRIN SQ SCH ×2 (08:21→20:04)
[2018-05-29] MEDS: FERROUS SULFATE 325 MG TABEC PO SCH ×2 (08:21→17:17)
[2018-05-29] MEDS: METOPROLOL SUCCINATE XL 50 MG TAB.SR.24H PO SCH (08:29)
[2018-05-29] MEDS: LOSARTAN POTASSIUM 50 MG TABLET GT SCH (08:29)
[2018-05-29] MEDS: AMLODIPINE 5 MG TABLET GT SCH (08:29)
[2018-05-29 12:00] VITALS: BP 104/40
[2018-05-29] MEDS: POTASSIUM CHLORIDE 50 ML IV SCH ×4 (14:11→18:32)
[2018-05-29] MEDS: GLUCERNA 1.2 1000ML LIQUID GT SCH ×4 (15:30→23:29)
[2018-05-29 15:57] VITALS: BP 117/36
[2018-05-29 20:00] VITALS: BP 110/41
[2018-05-30] VITALS (12 sets, daily range): BP systolic 99–122; BP diastolic 31–58
[2018-05-30] MEDS: MEROPENEM 1 G in IV NORMAL SALINE 100 ML IV SCH ×2 (02:00→13:46)
[2018-05-30] MEDS: VANCOMYCIN IV 1 G in PREMIXED 0 EACH IV SCH (02:28)
[2018-05-30] MEDS: COD LIVER OIL/ZINC OXIDE OINT 113 GM TUBE TOP PRN (04:35)
[2018-05-30] MEDS: ACETAMINOPHEN 325 MG TABLET PO PRN (04:35)
[2018-05-30 06:21] LABS: BASOPHILS # (AUTO) 0.1 K/uL (0.0-8.0); BASOPHILS % (AUTO) 1.1 % (0.0-2.0); EOSINOPHILS # (AUTO) 0.1 K/uL (0.0-0.7); EOSINOPHILS % (AUTO) 0.4 % (0.0-7.0); HEMATOCRIT 24.3 % (31.2-41.9); LYMPHOCYTES # (AUTO) 3.5 K/uL (20.0-40.0); LYMPHOCYTES % (AUTO) 27.1 % (20.5-51.5); MEAN CORPUSCULAR HEMOGLOBIN 25.1 uug (24.7-32.8); MEAN CORPUSCULAR HGB CONC 31 g/dL (32.3-35.6); MEAN CORPUSCULAR VOLUME 82.3 fL (75.5-95.3); MONOCYTES # (AUTO) 1.3 K/uL (2.0-10.0); MONOCYTES % (AUTO) 9.8 % (0.0-11.0); NEUTROPHILS % (AUTO) 61.6 % (38.5-71.5); PLATELET COUNT (AUTO) 490 K/uL (179-408); RED BLOOD CELL COUNT(AUTO) 2.95 MIL/uL (3.63-4.92); WHITE BLOOD COUNT (AUTO) 12.9 K/uL (3.8-11.8)
[2018-05-30 06:30] LABS: CARBON DIOXIDE 26 mmol/L (21-32); CHLORIDE 109 mmol/L (98-107); CREATININE 0.8 mg/dL (0.6-1.3); GLUCOSE 193 mg/dL (74-106); POTASSIUM 3.5 mmol/L (3.5-5.1); UREA NITROGEN, BLOOD 12 mg/dL (7-18)
[2018-05-30 06:32] LABS: HEMOGLOBIN 7.4 g/dL (10.9-14.3)
[2018-05-30] MEDS: LEVOTHYROXINE SODIUM 25 MCG TABLET GT SCH (06:38)
[2018-05-30] MEDS: GLUCERNA 1.2 1000ML LIQUID GT SCH ×3 (06:39→17:49)
[2018-05-30] MEDS: BLOOD SUGAR DIAGNOSTIC 1 EACH STRIP VI SCH ×4 (06:43→23:30)
[2018-05-30] MEDS: INSULIN REGULAR, HUMAN 300 UNIT/3 ML VIAL SQ PRN ×3 (08:19→17:48)
[2018-05-30] MEDS: ENOXAPARIN SODIUM 60 MG/0.6 ML DISP.SYRIN SQ SCH ×2 (08:20→20:12)
[2018-05-30] MEDS: PANTOPRAZOLE SODIUM 40 MG VIAL IV SCH (08:20)
[2018-05-30] MEDS: FUROSEMIDE 20 MG/2 ML VIAL IV SCH (08:26)
[2018-05-30] MEDS: FERROUS SULFATE 325 MG TABEC PO SCH (08:27)
[2018-05-30] MEDS: AMLODIPINE 5 MG TABLET GT SCH (09:00)
[2018-05-30] MEDS: METOPROLOL SUCCINATE XL 50 MG TAB.SR.24H PO SCH (09:00)
[2018-05-30] MEDS: LOSARTAN POTASSIUM 50 MG TABLET GT SCH (09:00)
[2018-05-30] MEDS: FERROUS SULFATE 300 MG/5 ML LIQUID UDC GT SCH ×2 (09:20→20:11)
[2018-05-30] MEDS: EPOETIN ALFA 20,000 UNIT/ML ML SQ SCH (11:12)
[2018-05-30] MEDS: LACTOBACILLUS RHAMNOSUS GG 1 EACH CAPSULE GT SCH (20:11)
[2018-05-31] MEDS: GLUCERNA 1.2 1000ML LIQUID GT SCH ×4 (00:07→17:39)
[2018-05-31] MEDS: MEROPENEM 1 G in IV NORMAL SALINE 100 ML IV SCH ×2 (01:23→14:29)
[2018-05-31] MEDS: COD LIVER OIL/ZINC OXIDE OINT 113 GM TUBE TOP PRN (01:23)
[2018-05-31 03:42] VITALS: BP 108/37
[2018-05-31] MEDS: VANCOMYCIN IV 1 G in PREMIXED 0 EACH IV SCH (05:17)
[2018-05-31] MEDS: BLOOD SUGAR DIAGNOSTIC 1 EACH STRIP VI SCH ×3 (05:23→17:46)
[2018-05-31] MEDS: PANTOPRAZOLE ORAL SUSPENSION 40 MG SUSPDR.PKT GT SCH (06:05)
[2018-05-31] MEDS: LEVOTHYROXINE SODIUM 25 MCG TABLET GT SCH (06:06)
[2018-05-31] MEDS: ACETAMINOPHEN 325 MG TABLET PO PRN (06:08)
[2018-05-31 06:59] LABS: BASOPHILS # (AUTO) 0.2 K/uL (0.0-8.0); BASOPHILS % (AUTO) 1.3 % (0.0-2.0); EOSINOPHILS # (AUTO) 0.1 K/uL (0.0-0.7); EOSINOPHILS % (AUTO) 0.5 % (0.0-7.0); LYMPHOCYTES % (AUTO) 27.8 % (20.5-51.5); MEAN CORPUSCULAR HGB CONC 31 g/dL (32.3-35.6); MEAN CORPUSCULAR VOLUME 83.9 fL (75.5-95.3); MONOCYTES # (AUTO) 1.2 K/uL (2.0-10.0); MONOCYTES % (AUTO) 8.4 % (0.0-11.0); NEUTROPHILS # (AUTO) 8.9 K/uL (1.8-8.9); PLATELET COUNT (AUTO) 434 K/uL (179-408); RED BLOOD CELL COUNT(AUTO) 3.45 MIL/uL (3.63-4.92); WHITE BLOOD COUNT (AUTO) 14.3 K/uL (3.8-11.8)
[2018-05-31 07:14] LABS: CARBON DIOXIDE 29 mmol/L (21-32); CHLORIDE 110 mmol/L (98-107); CREATININE 0.9 mg/dL (0.6-1.3); GLUCOSE 178 mg/dL (74-106); POTASSIUM 3.3 mmol/L (3.5-5.1); UREA NITROGEN, BLOOD 15 mg/dL (7-18)
[2018-05-31 08:10] VITALS: BP 98/45
[2018-05-31] MEDS: ENOXAPARIN SODIUM 60 MG/0.6 ML DISP.SYRIN SQ SCH ×2 (08:54→20:41)
[2018-05-31] MEDS: INSULIN REGULAR, HUMAN 300 UNIT/3 ML VIAL SQ PRN ×2 (08:56→12:12)
[2018-05-31] MEDS: FUROSEMIDE 20 MG/2 ML VIAL IV SCH (08:57)
[2018-05-31] MEDS: CALCIUM CARBONATE 500 MG TABLET GT SCH (08:57)
[2018-05-31] MEDS: LACTOBACILLUS RHAMNOSUS GG 1 EACH CAPSULE GT SCH ×2 (08:57→20:40)
[2018-05-31] MEDS: FERROUS SULFATE 300 MG/5 ML LIQUID UDC GT SCH ×2 (08:57→20:40)
[2018-05-31] MEDS: BETHANECHOL CHLORIDE 10 MG TABLET PEG SCH ×3 (08:58→17:39)
[2018-05-31] MEDS: AMLODIPINE 5 MG TABLET GT SCH (09:00)
[2018-05-31] MEDS: LOSARTAN POTASSIUM 50 MG TABLET GT SCH (09:00)
[2018-05-31] MEDS: METOPROLOL SUCCINATE XL 50 MG TAB.SR.24H PO SCH (09:00)
[2018-05-31 12:00] VITALS: BP 119/40
[2018-05-31 12:26] LABS: BILIRUBIN,DIRECT 0.1 mg/dL (0.0-0.2); BILIRUBIN,TOTAL 0.2 mg/dL (0.2-1.0); PHOSPHOROUS 1.9 mg/dL (2.5-4.9)
[2018-05-31] MEDS ORDERED: POTASSIUM CHLORIDE 20 MEQ POWDER PACKET GT ONE (15:15)
[2018-05-31] MEDS ORDERED: NEUTRA PHOS PACKET GT ONE (15:45)
[2018-05-31 16:00] VITALS: BP 137/53
[2018-05-31 16:10] LABS: *BILIRUBIN,URIN NEGATIVE (NEGATIVE); *BLOOD, URINE 2+ (NEGATIVE); *COLOR,URINE YELLOW (YELLOW); *KETONES,URINE NEGATIVE (NEGATIVE); *PROTEIN,URINE 1+ (NEGATIVE); *UROBILINOGEN,URINE 0.2 E.U./dl (NORMAL); NITRITE, URINE NEGATIVE (NEGATIVE); PH,URINE 8.5 (5.0-8.0); UGLUCOSE NEGATIVE (NEGATIVE)
[2018-05-31] MEDS ORDERED: NEUTRA PHOS PACKET ONE (16:17)
[2018-05-31 16:23] LABS: *CLARITY,URINE SLIGHTLY CLOUDY (CLEAR)
[2018-05-31 16:27] LABS: LEUKOCYTE ESTERASE ,URINE TRACE (NEGATIVE)
[2018-05-31 16:28] LABS: BACTERIA,URINE FEW /HPF (NONE SEEN); RBC,URINE 20-50 /HPF (0-3); SQUAMOUS EPITHELIAL CELL,UR MODERATE /HPF (NONE SEEN)
[2018-05-31 16:30] LABS: COARSE GRANULAR CASTS,URINE 0-3 /LPF; MUCUS,URINE MANY /LPF (0-FEW)
[2018-05-31 19:27] VITALS: BP 122/36
[2018-05-31] MEDS: PIPERACILLIN/TAZOBACTAM/D5W 3.375 G in PREMIXED 1 EACH IV SCH (22:14)
[2018-06-01] MEDS: GLUCERNA 1.2 1000ML LIQUID GT SCH ×4 (00:01→17:48)
[2018-06-01] MEDS: INSULIN REGULAR, HUMAN 300 UNIT/3 ML VIAL SQ PRN ×2 (00:04→11:52)
[2018-06-01 03:35] VITALS: BP 117/49
[2018-06-01] MEDS: PIPERACILLIN/TAZOBACTAM/D5W 3.375 G in PREMIXED 1 EACH IV SCH ×3 (05:13→21:07)
[2018-06-01] MEDS: BLOOD SUGAR DIAGNOSTIC 1 EACH STRIP VI SCH ×4 (05:57→17:48)
[2018-06-01] MEDS: LEVOTHYROXINE SODIUM 25 MCG TABLET GT SCH (06:03)
[2018-06-01] MEDS: PANTOPRAZOLE ORAL SUSPENSION 40 MG SUSPDR.PKT GT SCH (06:03)
[2018-06-01 06:30] LABS: ALANINE AMINOTRANSFERASE 13 U/L (14-59); ALKALINE PHOSPHATASE 145 U/L (50-136); ASPARTATE AMINOTRANSFERASE 17 U/L (15-37); BILIRUBIN,TOTAL 0.3 mg/dL (0.2-1.0); CARBON DIOXIDE 29 mmol/L (21-32); CHLORIDE 113 mmol/L (98-107); CREATININE 0.7 mg/dL (0.6-1.3); GLUCOSE 93 mg/dL (74-106); PHOSPHOROUS 2.8 mg/dL (2.5-4.9); POTASSIUM 3.6 mmol/L (3.5-5.1); TOTAL PROTEIN, SERUM 4.9 g/dL (6.4-8.2); UREA NITROGEN, BLOOD 17 mg/dL (7-18)
[2018-06-01 06:44] LABS: BASOPHILS # (AUTO) 0.1 K/uL (0.0-8.0); BASOPHILS % (AUTO) 0.5 % (0.0-2.0); EOSINOPHILS # (AUTO) 0.2 K/uL (0.0-0.7); EOSINOPHILS % (AUTO) 1.5 % (0.0-7.0); HEMATOCRIT 30.3 % (31.2-41.9); HEMOGLOBIN 9.4 g/dL (10.9-14.3); LYMPHOCYTES # (AUTO) 3.7 K/uL (20.0-40.0); LYMPHOCYTES % (AUTO) 25.8 % (20.5-51.5); MEAN CORPUSCULAR HEMOGLOBIN 26.2 uug (24.7-32.8); MEAN CORPUSCULAR HGB CONC 31 g/dL (32.3-35.6); MEAN CORPUSCULAR VOLUME 84.4 fL (75.5-95.3); MONOCYTES # (AUTO) 0.9 K/uL (2.0-10.0); MONOCYTES % (AUTO) 6.5 % (0.0-11.0); NEUTROPHILS # (AUTO) 9.5 K/uL (1.8-8.9); NEUTROPHILS % (AUTO) 65.7 % (38.5-71.5); PLATELET COUNT (AUTO) 420 K/uL (179-408); RED BLOOD CELL COUNT(AUTO) 3.59 MIL/uL (3.63-4.92); WHITE BLOOD COUNT (AUTO) 14.4 K/uL (3.8-11.8)
[2018-06-01] MEDS: CALCIUM CARBONATE 500 MG TABLET GT SCH (08:59)
[2018-06-01] MEDS: BETHANECHOL CHLORIDE 10 MG TABLET PEG SCH ×3 (08:59→17:00)
[2018-06-01] MEDS: LACTOBACILLUS RHAMNOSUS GG 1 EACH CAPSULE GT SCH ×2 (08:59→20:47)
[2018-06-01] MEDS: PROTEIN SUPPLEMENT (PROSTAT) 30 ML LIQUID GT SCH ×2 (08:59→17:00)
[2018-06-01] MEDS: FERROUS SULFATE 300 MG/5 ML LIQUID UDC GT SCH ×2 (08:59→20:47)
[2018-06-01] MEDS: ENOXAPARIN SODIUM 60 MG/0.6 ML DISP.SYRIN SQ SCH ×2 (09:00→20:47)
[2018-06-01] MEDS ORDERED: FUROSEMIDE 20 MG/2 ML VIAL IV ONE (09:15)
[2018-06-01 10:00] VITALS: BP 74/36
[2018-06-01] MEDS: EPOETIN ALFA 20,000 UNIT/ML ML SQ SCH (11:40)
[2018-06-01 15:32] VITALS: BP 93/42
[2018-06-01 20:43] VITALS: BP 104/43
[2018-06-02] MEDS: BLOOD SUGAR DIAGNOSTIC 1 EACH STRIP VI SCH ×5 (00:01→23:40)
[2018-06-02 04:30] VITALS: BP 103/48
[2018-06-02] MEDS: PIPERACILLIN/TAZOBACTAM/D5W 3.375 G in PREMIXED 1 EACH IV SCH ×3 (05:02→23:34)
[2018-06-02] MEDS: GLUCERNA 1.2 1000ML LIQUID GT SCH ×5 (06:00→23:51)
[2018-06-02] MEDS: PANTOPRAZOLE ORAL SUSPENSION 40 MG SUSPDR.PKT GT SCH (06:04)
[2018-06-02] MEDS: LEVOTHYROXINE SODIUM 25 MCG TABLET GT SCH (06:04)
[2018-06-02 06:48] LABS: BASOPHILS # (AUTO) 0.1 K/uL (0.0-8.0); BASOPHILS % (AUTO) 0.6 % (0.0-2.0); EOSINOPHILS # (AUTO) 0.2 K/uL (0.0-0.7); EOSINOPHILS % (AUTO) 1.5 % (0.0-7.0); HEMATOCRIT 31.1 % (31.2-41.9); HEMOGLOBIN 9.4 g/dL (10.9-14.3); LYMPHOCYTES # (AUTO) 3.8 K/uL (20.0-40.0); LYMPHOCYTES % (AUTO) 28.6 % (20.5-51.5); MEAN CORPUSCULAR HEMOGLOBIN 25.9 uug (24.7-32.8); MEAN CORPUSCULAR HGB CONC 30 g/dL (32.3-35.6); MEAN CORPUSCULAR VOLUME 85.2 fL (75.5-95.3); MONOCYTES % (AUTO) 7.9 % (0.0-11.0); NEUTROPHILS # (AUTO) 8.1 K/uL (1.8-8.9); NEUTROPHILS % (AUTO) 61.4 % (38.5-71.5); PLATELET COUNT (AUTO) 380 K/uL (179-408); RED BLOOD CELL COUNT(AUTO) 3.64 MIL/uL (3.63-4.92); WHITE BLOOD COUNT (AUTO) 13.3 K/uL (3.8-11.8)
[2018-06-02 07:11] LABS: ALANINE AMINOTRANSFERASE 12 U/L (14-59); ALKALINE PHOSPHATASE 129 U/L (50-136); ASPARTATE AMINOTRANSFERASE 16 U/L (15-37); BILIRUBIN,TOTAL 0.4 mg/dL (0.2-1.0); CARBON DIOXIDE 29 mmol/L (21-32); CHLORIDE 116 mmol/L (98-107); CREATININE 0.9 mg/dL (0.6-1.3); GLUCOSE 129 mg/dL (74-106); MAGNESIUM 1.9 mg/dL (1.8-2.4); PHOSPHOROUS 3.9 mg/dL (2.5-4.9); TOTAL PROTEIN, SERUM 5.2 g/dL (6.4-8.2); UREA NITROGEN, BLOOD 20 mg/dL (7-18)
[2018-06-02] MEDS: FERROUS SULFATE 300 MG/5 ML LIQUID UDC GT SCH ×2 (09:29→20:17)
[2018-06-02] MEDS: BETHANECHOL CHLORIDE 10 MG TABLET PEG SCH ×3 (09:29→18:23)
[2018-06-02] MEDS: LACTOBACILLUS RHAMNOSUS GG 1 EACH CAPSULE GT SCH ×2 (09:29→20:17)
[2018-06-02] MEDS: CALCIUM CARBONATE 500 MG TABLET GT SCH (09:29)
[2018-06-02] MEDS: PROTEIN SUPPLEMENT (PROSTAT) 30 ML LIQUID GT SCH ×2 (09:30→18:23)
[2018-06-02] MEDS: ENOXAPARIN SODIUM 60 MG/0.6 ML DISP.SYRIN SQ SCH ×2 (09:32→20:18)
[2018-06-02 11:14] VITALS: BP 106/43
[2018-06-02] MEDS: POTASSIUM CHLORIDE 50 ML IV SCH ×2 (11:39→12:51)
[2018-06-02] MEDS: MICAFUNGIN SODIUM 100 MG in IV NORMAL SALINE 100 ML IV SCH (15:14)
[2018-06-02 15:34] VITALS: BP 101/41
[2018-06-02] MEDS ORDERED: HYDROCODONE/APAP 5-325MG TABLET PO PRN ×2 (17:45)
[2018-06-02] MEDS ORDERED: ENSURE ENLIVE (VAN) 240 ML LIQUID GT ONE (18:00)
[2018-06-02 20:00] VITALS: BP 108/34
[2018-06-03 04:01] VITALS: BP 114/46
[2018-06-03] MEDS: PIPERACILLIN/TAZOBACTAM/D5W 3.375 G in PREMIXED 1 EACH IV SCH ×3 (05:25→22:24)
[2018-06-03] MEDS: GLUCERNA 1.2 1000ML LIQUID GT SCH ×3 (05:25→18:00)
[2018-06-03] MEDS: LEVOTHYROXINE SODIUM 25 MCG TABLET GT SCH (06:05)
[2018-06-03] MEDS: PANTOPRAZOLE ORAL SUSPENSION 40 MG SUSPDR.PKT GT SCH (06:05)
[2018-06-03] MEDS: BLOOD SUGAR DIAGNOSTIC 1 EACH STRIP VI SCH ×3 (06:05→18:23)
[2018-06-03 06:58] LABS: ALANINE AMINOTRANSFERASE 12 U/L (14-59); ALKALINE PHOSPHATASE 124 U/L (50-136); ASPARTATE AMINOTRANSFERASE 17 U/L (15-37); BILIRUBIN,TOTAL 0.3 mg/dL (0.2-1.0); CARBON DIOXIDE 31 mmol/L (21-32); CREATININE 0.9 mg/dL (0.6-1.3); GLUCOSE 124 mg/dL (74-106); MAGNESIUM 2.2 mg/dL (1.8-2.4); PHOSPHOROUS 4.3 mg/dL (2.5-4.9); TOTAL PROTEIN, SERUM 5.2 g/dL (6.4-8.2); UREA NITROGEN, BLOOD 21 mg/dL (7-18)
[2018-06-03 07:06] LABS: CHLORIDE 118 mmol/L (98-107)
[2018-06-03 07:20] LABS: POTASSIUM 2.6 mmol/L (3.5-5.1)
[2018-06-03 07:26] LABS: BASOPHILS # (AUTO) 0.1 K/uL (0.0-8.0); BASOPHILS % (AUTO) 0.6 % (0.0-2.0); EOSINOPHILS # (AUTO) 0.2 K/uL (0.0-0.7); EOSINOPHILS % (AUTO) 1.2 % (0.0-7.0); HEMATOCRIT 29.2 % (31.2-41.9); HEMOGLOBIN 8.9 g/dL (10.9-14.3); LYMPHOCYTES # (AUTO) 3.7 K/uL (20.0-40.0); LYMPHOCYTES % (AUTO) 26.5 % (20.5-51.5); MEAN CORPUSCULAR HGB CONC 30 g/dL (32.3-35.6); MEAN CORPUSCULAR VOLUME 85.7 fL (75.5-95.3); MONOCYTES % (AUTO) 7.2 % (0.0-11.0); NEUTROPHILS % (AUTO) 64.5 % (38.5-71.5); PLATELET COUNT (AUTO) 396 K/uL (179-408); RED BLOOD CELL COUNT(AUTO) 3.41 MIL/uL (3.63-4.92)
[2018-06-03 08:04] VITALS: BP 104/35
[2018-06-03] MEDS: FERROUS SULFATE 300 MG/5 ML LIQUID UDC GT SCH ×2 (08:06→20:13)
[2018-06-03] MEDS: LACTOBACILLUS RHAMNOSUS GG 1 EACH CAPSULE GT SCH ×2 (08:06→20:13)
[2018-06-03] MEDS: BETHANECHOL CHLORIDE 10 MG TABLET PEG SCH ×3 (08:06→18:22)
[2018-06-03] MEDS: ENOXAPARIN SODIUM 60 MG/0.6 ML DISP.SYRIN SQ SCH ×2 (08:07→20:16)
[2018-06-03] MEDS: CALCIUM CARBONATE 500 MG TABLET GT SCH (08:07)
[2018-06-03] MEDS: PROTEIN SUPPLEMENT (PROSTAT) 30 ML LIQUID GT SCH ×2 (08:08→18:16)
[2018-06-03 11:04] VITALS: BP 139/45
[2018-06-03] MEDS: POTASSIUM CHLORIDE 50 ML IV SCH ×4 (11:21→18:15)
[2018-06-03] MEDS: INSULIN REGULAR, HUMAN 300 UNIT/3 ML VIAL SQ PRN (12:50)
[2018-06-03] MEDS: ACETAMINOPHEN 325 MG TABLET PO PRN (12:51)
[2018-06-03] MEDS: MICAFUNGIN SODIUM 100 MG in IV NORMAL SALINE 100 ML IV SCH (13:46)
[2018-06-03 15:18] VITALS: BP 98/42
[2018-06-03 20:00] VITALS: BP 123/54
[2018-06-04] MEDS: BLOOD SUGAR DIAGNOSTIC 1 EACH STRIP VI SCH ×4 (00:20→18:07)
[2018-06-04] MEDS: GLUCERNA 1.2 1000ML LIQUID GT SCH ×4 (01:07→18:27)
[2018-06-04 04:00] VITALS: BP 114/66
[2018-06-04] MEDS: PIPERACILLIN/TAZOBACTAM/D5W 3.375 G in PREMIXED 1 EACH IV SCH ×3 (05:05→21:20)
[2018-06-04 06:41] LABS: BASOPHILS # (AUTO) 0.1 K/uL (0.0-8.0); EOSINOPHILS # (AUTO) 0.2 K/uL (0.0-0.7); EOSINOPHILS % (AUTO) 2.1 % (0.0-7.0); HEMATOCRIT 29.8 % (31.2-41.9); LYMPHOCYTES # (AUTO) 3.2 K/uL (20.0-40.0); LYMPHOCYTES % (AUTO) 29.5 % (20.5-51.5); MEAN CORPUSCULAR HEMOGLOBIN 26.1 uug (24.7-32.8); MEAN CORPUSCULAR HGB CONC 30 g/dL (32.3-35.6); MEAN CORPUSCULAR VOLUME 86.4 fL (75.5-95.3); MONOCYTES # (AUTO) 0.7 K/uL (2.0-10.0); MONOCYTES % (AUTO) 6.4 % (0.0-11.0); NEUTROPHILS # (AUTO) 6.7 K/uL (1.8-8.9); PLATELET COUNT (AUTO) 335 K/uL (179-408); RED BLOOD CELL COUNT(AUTO) 3.44 MIL/uL (3.63-4.92); WHITE BLOOD COUNT (AUTO) 10.9 K/uL (3.8-11.8)
[2018-06-04] MEDS: PANTOPRAZOLE ORAL SUSPENSION 40 MG SUSPDR.PKT GT SCH (06:56)
[2018-06-04] MEDS: LEVOTHYROXINE SODIUM 25 MCG TABLET GT SCH (06:56)
[2018-06-04] MEDS: LACTOBACILLUS RHAMNOSUS GG 1 EACH CAPSULE GT SCH ×2 (08:53→21:19)
[2018-06-04] MEDS: FERROUS SULFATE 300 MG/5 ML LIQUID UDC GT SCH ×2 (08:53→21:19)
[2018-06-04] MEDS: ENOXAPARIN SODIUM 60 MG/0.6 ML DISP.SYRIN SQ SCH ×2 (08:53→21:20)
[2018-06-04] MEDS: CALCIUM CARBONATE 500 MG TABLET GT SCH (08:53)
[2018-06-04] MEDS: BETHANECHOL CHLORIDE 10 MG TABLET PEG SCH ×3 (08:53→17:03)
[2018-06-04 08:54] LABS: CARBON DIOXIDE 31 mmol/L (21-32); CHLORIDE 119 mmol/L (98-107); CREATININE 1.1 mg/dL (0.6-1.3); GLUCOSE 140 mg/dL (74-106); MAGNESIUM 2.4 mg/dL (1.8-2.4); PHOSPHOROUS 3.5 mg/dL (2.5-4.9); UREA NITROGEN, BLOOD 26 mg/dL (7-18)
[2018-06-04] MEDS: PROTEIN SUPPLEMENT (PROSTAT) 30 ML LIQUID GT SCH ×2 (08:54→17:03)
[2018-06-04 08:57] LABS: POTASSIUM 2.8 mmol/L (3.5-5.1)
[2018-06-04] MEDS ORDERED: POTASSIUM CHLORIDE 50 ML IV SCH (10:15)
[2018-06-04] MEDS: POTASSIUM CHLORIDE 10 MEQ, LIDOCAINE-MPF 1% 1 ML in IV DEXTROSE 5% 100 ML IV SCH ×4 (11:26→14:52)
[2018-06-04] MEDS: EPOETIN ALFA 20,000 UNIT/ML ML SQ SCH (11:38)
[2018-06-04 12:02] VITALS: BP 114/45
[2018-06-04] MEDS: MICAFUNGIN SODIUM 100 MG in IV NORMAL SALINE 100 ML IV SCH (14:53)
[2018-06-04 16:00] VITALS: BP 128/45
[2018-06-04] MEDS: METOCLOPRAMIDE HCL 10 MG/2 ML VIAL IV SCH (17:04)
[2018-06-04] MEDS: INSULIN REGULAR, HUMAN 300 UNIT/3 ML VIAL SQ PRN (18:29)
[2018-06-04 20:12] VITALS: BP 108/36
[2018-06-05] MEDS: BLOOD SUGAR DIAGNOSTIC 1 EACH STRIP VI SCH ×4 (00:33→18:31)
[2018-06-05] MEDS: METOCLOPRAMIDE HCL 10 MG/2 ML VIAL IV SCH ×4 (00:33→17:13)
[2018-06-05] MEDS: GLUCERNA 1.2 1000ML LIQUID GT SCH ×4 (01:09→18:32)
[2018-06-05] MEDS: PIPERACILLIN/TAZOBACTAM/D5W 3.375 G in PREMIXED 1 EACH IV SCH ×3 (05:09→22:27)
[2018-06-05 05:11] VITALS: BP 112/44
[2018-06-05] MEDS: INSULIN REGULAR, HUMAN 300 UNIT/3 ML VIAL SQ PRN (05:29)
[2018-06-05] MEDS: LEVOTHYROXINE SODIUM 25 MCG TABLET GT SCH (06:05)
[2018-06-05] MEDS: PANTOPRAZOLE ORAL SUSPENSION 40 MG SUSPDR.PKT GT SCH (06:05)
[2018-06-05 06:31] LABS: BASOPHILS # (AUTO) 0.1 K/uL (0.0-8.0); BASOPHILS % (AUTO) 0.7 % (0.0-2.0); EOSINOPHILS # (AUTO) 0.4 K/uL (0.0-0.7); EOSINOPHILS % (AUTO) 3.8 % (0.0-7.0); HEMATOCRIT 28.7 % (31.2-41.9); HEMOGLOBIN 8.6 g/dL (10.9-14.3); LYMPHOCYTES # (AUTO) 3.5 K/uL (20.0-40.0); LYMPHOCYTES % (AUTO) 30.9 % (20.5-51.5); MEAN CORPUSCULAR HEMOGLOBIN 26.4 uug (24.7-32.8); MEAN CORPUSCULAR HGB CONC 30 g/dL (32.3-35.6); MEAN CORPUSCULAR VOLUME 88.1 fL (75.5-95.3); MONOCYTES # (AUTO) 0.7 K/uL (2.0-10.0); MONOCYTES % (AUTO) 6.4 % (0.0-11.0); NEUTROPHILS # (AUTO) 6.6 K/uL (1.8-8.9); NEUTROPHILS % (AUTO) 58.2 % (38.5-71.5); PLATELET COUNT (AUTO) 366 K/uL (179-408); RED BLOOD CELL COUNT(AUTO) 3.26 MIL/uL (3.63-4.92); WHITE BLOOD COUNT (AUTO) 11.3 K/uL (3.8-11.8)
[2018-06-05 06:55] LABS: ALANINE AMINOTRANSFERASE 10 U/L (14-59); ALKALINE PHOSPHATASE 135 U/L (50-136); ASPARTATE AMINOTRANSFERASE 20 U/L (15-37); BILIRUBIN,TOTAL 0.2 mg/dL (0.2-1.0); CARBON DIOXIDE 30 mmol/L (21-32); CHLORIDE 121 mmol/L (98-107); GLUCOSE 148 mg/dL (74-106); MAGNESIUM 2.5 mg/dL (1.8-2.4); PHOSPHOROUS 2.6 mg/dL (2.5-4.9); POTASSIUM 2.9 mmol/L (3.5-5.1); TOTAL PROTEIN, SERUM 5.4 g/dL (6.4-8.2); UREA NITROGEN, BLOOD 23 mg/dL (7-18)
[2018-06-05] MEDS: ENOXAPARIN SODIUM 60 MG/0.6 ML DISP.SYRIN SQ SCH ×2 (08:43→20:43)
[2018-06-05] MEDS: CALCIUM CARBONATE 500 MG TABLET GT SCH (08:43)
[2018-06-05] MEDS: LACTOBACILLUS RHAMNOSUS GG 1 EACH CAPSULE GT SCH ×2 (08:43→20:44)
[2018-06-05] MEDS: BETHANECHOL CHLORIDE 10 MG TABLET PEG SCH ×3 (08:43→17:13)
[2018-06-05] MEDS: PROTEIN SUPPLEMENT (PROSTAT) 30 ML LIQUID GT SCH ×2 (08:43→17:13)
[2018-06-05] MEDS: FERROUS SULFATE 300 MG/5 ML LIQUID UDC GT SCH ×2 (08:43→20:44)
[2018-06-05] MEDS: IV D5W 1000ML 1,000 ML IV PRN (11:30)
[2018-06-05] MEDS: POTASSIUM CHLORIDE 10 MEQ, LIDOCAINE-MPF 1% 1 ML in IV DEXTROSE 5% 100 ML IV SCH ×6 (13:14→19:06)
[2018-06-05 15:47] VITALS: BP 112/50
[2018-06-05] MEDS ORDERED: GLUCERNA 1.2 1000ML LIQUID GT PRN (19:00)
[2018-06-05 20:27] VITALS: BP 120/41
[2018-06-06] MEDS: BLOOD SUGAR DIAGNOSTIC 1 EACH STRIP VI SCH ×2 (00:06→05:00)
[2018-06-06] MEDS: METOCLOPRAMIDE HCL 10 MG/2 ML VIAL IV SCH ×2 (00:06→05:00)
[2018-06-06] MEDS: INSULIN REGULAR, HUMAN 300 UNIT/3 ML VIAL SQ PRN (00:08)
[2018-06-06] MEDS: GLUCERNA 1.2 1000ML LIQUID GT SCH ×2 (00:30→06:01)
[2018-06-06] MEDS: PIPERACILLIN/TAZOBACTAM/D5W 3.375 G in PREMIXED 1 EACH IV SCH (05:08)
[2018-06-06 05:22] VITALS: BP 122/53
[2018-06-06 05:53] LABS: BASOPHILS # (AUTO) 0.1 K/uL (0.0-8.0); BASOPHILS % (AUTO) 0.5 % (0.0-2.0); EOSINOPHILS # (AUTO) 0.5 K/uL (0.0-0.7); HEMATOCRIT 28.7 % (31.2-41.9); HEMOGLOBIN 8.6 g/dL (10.9-14.3); LYMPHOCYTES # (AUTO) 3.7 K/uL (20.0-40.0); LYMPHOCYTES % (AUTO) 30.8 % (20.5-51.5); MEAN CORPUSCULAR HEMOGLOBIN 26.2 uug (24.7-32.8); MEAN CORPUSCULAR HGB CONC 30 g/dL (32.3-35.6); MEAN CORPUSCULAR VOLUME 87.5 fL (75.5-95.3); MONOCYTES # (AUTO) 0.9 K/uL (2.0-10.0); MONOCYTES % (AUTO) 7.5 % (0.0-11.0); NEUTROPHILS # (AUTO) 6.9 K/uL (1.8-8.9); NEUTROPHILS % (AUTO) 57.2 % (38.5-71.5); PLATELET COUNT (AUTO) 358 K/uL (179-408); RED BLOOD CELL COUNT(AUTO) 3.28 MIL/uL (3.63-4.92)
[2018-06-06] MEDS: PANTOPRAZOLE ORAL SUSPENSION 40 MG SUSPDR.PKT GT SCH (06:01)
[2018-06-06] MEDS: LEVOTHYROXINE SODIUM 25 MCG TABLET GT SCH (06:01)
[2018-06-06 06:06] LABS: CARBON DIOXIDE 29 mmol/L (21-32); CHLORIDE 121 mmol/L (98-107); CREATININE 0.9 mg/dL (0.6-1.3); GLUCOSE 96 mg/dL (74-106); MAGNESIUM 2.3 mg/dL (1.8-2.4); PHOSPHOROUS 2.4 mg/dL (2.5-4.9); POTASSIUM 3.5 mmol/L (3.5-5.1); UREA NITROGEN, BLOOD 18 mg/dL (7-18)
[2018-06-06] MEDS: ENOXAPARIN SODIUM 60 MG/0.6 ML DISP.SYRIN SQ SCH (07:58)
[2018-06-06] MEDS: CALCIUM CARBONATE 500 MG TABLET GT SCH (08:13)
[2018-06-06] MEDS: BETHANECHOL CHLORIDE 10 MG TABLET PEG SCH (08:13)
[2018-06-06] MEDS: LACTOBACILLUS RHAMNOSUS GG 1 EACH CAPSULE GT SCH (08:13)
[2018-06-06] MEDS: FERROUS SULFATE 300 MG/5 ML LIQUID UDC GT SCH (08:13)
[2018-06-06] MEDS: IV D5W 1000ML 1,000 ML IV PRN (08:20)
[2018-06-06] MEDS: PROTEIN SUPPLEMENT (PROSTAT) 30 ML LIQUID GT SCH (08:21)
== END 2018-06-06 10:45 | disposition expired | DRG 393 ==
LOC: ER 11:06 → TELE 16:49 → MED 05-29 18:08
PROVIDERS: ADMIT Registered Nurse; ATTEND Registered Nurse
PROC: 02HV33Z Insertion of Infusion Device into Superior Vena Cava, Percutaneous Approach (ICD-10-PCS; 2018-05-28)
PROC: B548ZZA Ultrasonography of Superior Vena Cava, Guidance (ICD-10-PCS; 2018-05-28)
PROC: 30233N1 Transfusion of Nonautologous Red Blood Cells into Peripheral Vein, Percutaneous Approach (ICD-10-PCS; principal; 2018-05-30)
DX: K94.23 Gastrostomy malfunction (principal); L89.154 Pressure ulcer of sacral region, stage 4; A41.9 Sepsis, unspecified organism; E43 Unspecified severe protein-calorie malnutrition; G92 Toxic encephalopathy; I50.33 Acute on chronic diastolic (congestive) heart failure; J69.0 Pneumonitis due to inhalation of food and vomit; R53.2 Functional quadriplegia; N39.0 Urinary tract infection, site not specified; M86.9 Osteomyelitis, unspecified; I69.351 Hemiplegia and hemiparesis following cerebral infarction affecting right dominant side; D68.59 Other primary thrombophilia; L03.818 Cellulitis of other sites; T82.594A Other mechanical complication of infusion catheter, initial encounter; I31.3 Pericardial effusion (noninflammatory); I82.622 Acute embolism and thrombosis of deep veins of left upper extremity; J84.9 Interstitial pulmonary disease, unspecified; K31.6 Fistula of stomach and duodenum; L03.311 Cellulitis of abdominal wall; J98.11 Atelectasis; K56.7 Ileus, unspecified; Z51.5 Encounter for palliative care; Z66 Do not resuscitate; D50.9 Iron deficiency anemia, unspecified; Y83.3 Surgical operation with formation of external stoma as the cause of abnormal reaction of the patient, or of later complication, without mention of misadventure at the time of the procedure; Y82.9 Unspecified medical devices associated with adverse incidents; Y92.129 Unspecified place in nursing home as the place of occurrence of the external cause; E11.40 Type 2 diabetes mellitus with diabetic neuropathy, unspecified; E11.69 Type 2 diabetes mellitus with other specified complication; M19.90 Unspecified osteoarthritis, unspecified site; M81.0 Age-related osteoporosis without current pathological fracture; I11.0 Hypertensive heart disease with heart failure; E11.621 Type 2 diabetes mellitus with foot ulcer; E87.6 Hypokalemia; E78.5 Hyperlipidemia, unspecified; Z74.09 Other reduced mobility; R13.10 Dysphagia, unspecified; K21.9 Gastro-esophageal reflux disease without esophagitis; Z90.01 Acquired absence of eye; Z91.19 Patient's noncompliance with other medical treatment and regimen; Z90.710 Acquired absence of both cervix and uterus; Z87.440 Personal history of urinary (tract) infections; Z86.19 Personal history of other infectious and parasitic diseases; Z96.641 Presence of right artificial hip joint; Z88.1 Allergy status to other antibiotic agents; Z88.2 Allergy status to sulfonamides; Z79.899 Other long term (current) drug therapy; Z79.82 Long term (current) use of aspirin; Z79.01 Long term (current) use of anticoagulants; Z79.84 Long term (current) use of oral hypoglycemic drugs; L97.519 Non-pressure chronic ulcer of other part of right foot with unspecified severity; B96.89 Other specified bacterial agents as the cause of diseases classified elsewhere; F01.50 Vascular dementia, unspecified severity, without behavioral disturbance, psychotic disturbance, mood disturbance, and anxiety; E03.9 Hypothyroidism, unspecified; Z74.01 Bed confinement status; H54.61 Unqualified visual loss, right eye, normal vision left eye; I08.0 Rheumatic disorders of both mitral and aortic valves; I25.10 Atherosclerotic heart disease of native coronary artery without angina pectoris; F02.80 Dementia in other diseases classified elsewhere, unspecified severity, without behavioral disturbance, psychotic disturbance, mood disturbance, and anxiety; G30.9 Alzheimer's disease, unspecified; Z87.01 Personal history of pneumonia (recurrent); Z86.14 Personal history of Methicillin resistant Staphylococcus aureus infection; L97.529 Non-pressure chronic ulcer of other part of left foot with unspecified severity; I27.20 Pulmonary hypertension, unspecified; K80.20 Calculus of gallbladder without cholecystitis without obstruction
CPT/HCPCS: 36415; 36569; 70030-TC; 71045; 71250; 72192; 74018; 83605; 83735; 84100; 84443; 85025; 85610; 85651; 85730; 86140; 86850; 86900; 86901; 86920; 87040; 87070; 87077; 87086; 93005; 93307; A4217; A4663; C1751; C1758; C9113; J0885; J1650; J1815; J1940; J2001; J2185; J2248; J2405; J2543; J2765; J2997; J3370; J3480; J3490; J7030; J7040; J7050; J7060; J7070; P9016-BL; P9021; Q9963; Z7610